=== PATIENT | female | born 1950 | race Caucasian/White ===

== ENCOUNTER 2016-10-31 13:41 | Emergency (ER) | payer MEDICARE, BC, OTHER ==
[~2016-10-31] VITALS: Ht 154.9 cm; Wt 101.9 kg
[2016-10-31] MEDS ORDERED: PARO40TA2 (13:57)
[2016-10-31] MEDS ORDERED: ALOG12.5 (13:57)
[2016-10-31] MEDS ORDERED: SPIR100T (13:57)
[2016-10-31] MEDS ORDERED: JARD1TAB (13:57)
[2016-10-31] MEDS ORDERED: ARIC10TA (13:57)
[2016-10-31] MEDS ORDERED: ATOR40TA (13:57)
[2016-10-31] MEDS ORDERED: PROA1AER (13:57)
[2016-10-31] MEDS ORDERED: ASPI81TA85 PO (13:57)
[2016-10-31 14:55] LABS: BASO # 0.1 K/mm3 (0.0-0.2); BASO % 1.2 % (0.0-1.0); EOS # 0.2 K/mm3 (0.0-0.50); EOS % 4.2 % (0.0-3.0); LARGE UNSTAINED CELL # 0.2 K/mm3 (0.0-0.4); LARGE UNSTAINED CELL % 3.2 % (0.0-4.0); LYMPH # 1.1 K/mm3 (1.5-4.5); LYMPH % 16.5 % (24.0-44.0); MEAN CORPUSCULAR HEMOGLOBIN 25.7 pg (27.0-33.0); MEAN CORPUSCULAR HGB CONC 30.4 g/dl (32.0-36.5); MEAN CORPUSCULAR VOLUME 84.5 fl (80.0-96.0); MONO # 0.3 K/mm3 (0.0-0.8); MONO % 5.2 % (0.0-5.0); NEUTROPHILS # 3.8 K/mm3 (1.8-7.7); NEUTROPHILS % 69.6 % (36.0-66.0); PLATELET COUNT, AUTOMATED 242 k/mm3 (150-450); RED CELL DISTRIBUTION WIDTH 17.6 % (11.5-14.5); WHITE BLOOD COUNT 5.4 K/mm3 (4.0-10.0)
[2016-10-31 15:21] LABS: CREATININE FOR GFR 1.19 MG/DL (0.55-1.02); GLOMERULAR FILTRATION RATE 48.3 (>45)
[2016-10-31 15:30] LABS: ALBUMIN/GLOBULIN RATIO 0.63 (1.00-1.93); BILIRUBIN,DIRECT 0.1 MG/DL (0.0-0.2); BILIRUBIN,TOTAL 0.3 MG/DL (0.2-1.0); TOTAL PROTEIN 7.8 GM/DL (6.4-8.2)
[2016-10-31 15:31] LABS: POTASSIUM SERUM 5.5 MEQ/L (3.5-5.1)
--- NOTE | 2016-10-31 15:41 | REP ---
CHEST, TWO VIEWS: Two views of the chest are performed and compared to a prior study of 08/04/2014. Heart does not appear to be significantly enlarged. Scattered interstitial fibrosis appears stable with no definite acute infiltrate. Mediastinal silhouette is unchanged. There are mild degenerative changes of the spine. IMPRESSION: Stable chronic findings without evidence of acute infiltrate. Signed by Ethan Bermudez MD 10/31/2016 05:26 P
--- NOTE | 2016-10-31 16:43 | REP ---
Bilateral lower extremity Duplex Doppler venous ultrasound: Real time compression and duplex Doppler interrogation of the bilateral lower extremity deep venous system is performed. Bilaterally, the common femoral, superficial femoral and popliteal veins are fully compressible with transducer pressure and demonstrate normal spontaneous and phasic flow, without evidence of deep venous thrombosis. Impression: No evidence of deep venous thrombosis of the bilateral lower extremity femoral popliteal venous system. Signed by Ethan Bermudez MD 10/31/2016 04:33 P
[2016-10-31] MEDS ORDERED: T E MIS XX (18:44)
[2016-10-31 18:47] LABS: CALCIUM LEVEL 8.5 MG/DL (8.8-10.2); CREATININE FOR GFR 1.25 MG/DL (0.55-1.02); GLOMERULAR FILTRATION RATE 45.6 (>45); POTASSIUM SERUM 4.9 MEQ/L (3.5-5.1)
[2016-10-31 18:51] LABS: PERCENT SATURATION 6.4 % (13.2-37.4)
[2016-10-31 18:57] LABS: FOLATE 19.8 NG/ML (>5.4)
[2016-10-31] MEDS ORDERED: LASI20TA PO (19:06)
[2016-10-31 19:18] VITALS: BP 134/63
--- NOTE | 2016-11-01 19:31 | ECGEPIP ---
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
== END 2016-10-31 19:31 | disposition home or self-care (01) ==
LOC: M ED 14:56
DX: R60.0 Localized edema (principal); E11.65 Type 2 diabetes mellitus with hyperglycemia; R06.02 Shortness of breath; I10 Essential (primary) hypertension; D49.7 Neoplasm of unspecified behavior of endocrine glands and other parts of nervous system; G30.9 Alzheimer's disease, unspecified; Z79.899 Other long term (current) drug therapy; Z79.82 Long term (current) use of aspirin

== ENCOUNTER 2016-11-20 11:23 | Emergency (ER) | payer MEDICARE, BC, OTHER ==
[~2016-11-20] VITALS: Ht 165.1 cm; Wt 90.0 kg
[~2016-11-20 11:23] MED LIST: ALOG12.5; ARIC1TAB2; ASPI81TA85 PO; ATOR40TA75; JARD1TAB; LASI20TA PO; PARO40TA2; PROAAER10; SPIR100T; T E MIS XX
[2016-11-20] MEDS ORDERED: HYDR-3713 PO (12:18)
[2016-11-20] MEDS ORDERED: BUPR50TA PO (12:18)
[2016-11-20 14:07] LABS: BASO # 0.1 K/mm3 (0.0-0.2); BASO % 1.3 % (0.0-1.0); EOS # 0.2 K/mm3 (0.0-0.50); EOS % 3.5 % (0.0-3.0); LARGE UNSTAINED CELL # 0.3 K/mm3 (0.0-0.4); LYMPH % 15.3 % (24.0-44.0); MEAN CORPUSCULAR HEMOGLOBIN 25.7 pg (27.0-33.0); MEAN CORPUSCULAR HGB CONC 30.9 g/dl (32.0-36.5); MEAN CORPUSCULAR VOLUME 83.3 fl (80.0-96.0); MONO # 0.4 K/mm3 (0.0-0.8); MONO % 5.4 % (0.0-5.0); NEUTROPHILS # 4.6 K/mm3 (1.8-7.7); NEUTROPHILS % 70.5 % (36.0-66.0); PLATELET COUNT, AUTOMATED 246 k/mm3 (150-450); RED CELL DISTRIBUTION WIDTH 16.2 % (11.5-14.5); WHITE BLOOD COUNT 6.5 K/mm3 (4.0-10.0)
[2016-11-20 14:19] LABS: INR 1.19
[2016-11-20 14:28] LABS: ALBUMIN 3.5 GM/DL (3.2-5.2); ALBUMIN/GLOBULIN RATIO 0.95 (1.00-1.93); ALKALINE PHOSPHATASE 230 U/L (45-117); ALT/SGPT 16 U/L (12-78); ANION GAP 8 MEQ/L (8-16); AST/SGOT 40 U/L (15-37); BILIRUBIN,DIRECT 0.1 MG/DL (0.0-0.2); BILIRUBIN,TOTAL 0.4 MG/DL (0.2-1.0); BLOOD UREA NITROGEN 51 MG/DL (7-18); CALCIUM LEVEL 8.5 MG/DL (8.8-10.2); CARBON DIOXIDE LEVEL 25 MEQ/L (21-32); CHLORIDE LEVEL 95 MEQ/L (98-107); CREATININE FOR GFR 1.51 MG/DL (0.55-1.02); GLOMERULAR FILTRATION RATE 36.7 (>45); GLUCOSE, FASTING 113 MG/DL (80-110); POTASSIUM SERUM 4.9 MEQ/L (3.5-5.1); SODIUM LEVEL 128 MEQ/L (136-145); TOTAL PROTEIN 7.2 GM/DL (6.4-8.2)
--- NOTE | 2016-11-20 15:37 | REP ---
Clinical: Abdominal pain. Elevated lipase levels. Findings: Lung bases are clear. Visualized heart and pericardium normal. Liver, spleen, pancreas, bilateral adrenal glands and kidneys are normal for noncontrast evaluation. No obvious peripancreatic stranding is appreciated to suggest acute pancreatitis by CT. The patient is status post cholecystectomy and small choledocholiths measuring up to 3 mm cannot be excluded (images 38 - 39, 41 - 42). Mesenteric stranding in the right lower abdomen adjacent to the ascending colon suggests acute colitis and should be correlated clinically. The remainder of the small and large bowel is unremarkable. Pelvis demonstrates normal bladder and mildly prominent uterus. No ascites. No free air. No adenopathy. Abdominal aorta without aneurysm. Musculoskeletal structures are intact. Impression: 1. Pericolonic and right lower abdominal stranding suggests colitis involving the ascending colon. Correlation recommended. 2. No significant peripancreatic changes to suggest acute pancreatitis by CT. 3. Prior cholecystectomy with suspected choledocholithiasis. Signed by Eh Delarosa MD 11/20/2016 03:29 P
[2016-11-20] MEDS ORDERED: NS 500 ML IV ONE (15:45)
[2016-11-20 17:06] VITALS: BP 141/63
--- NOTE | 2016-11-21 08:34 | ED PDOC ---
Post-Departure Follow-Up dr henriquez and rolf richardson faxed formal report of ct abd/p for fu Isra Izquierdo MD Nov 21, 2016 08:34
--- NOTE | 2016-11-21 20:47 | ECGEPIP ---
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
== END 2016-11-20 17:24 | disposition home or self-care (01) ==
LOC: M ED 11:23
DX: D64.9 Anemia, unspecified (principal); R53.1 Weakness; R93.5 Abnormal findings on diagnostic imaging of other abdominal regions, including retroperitoneum; G89.29 Other chronic pain; E11.9 Type 2 diabetes mellitus without complications; I51.9 Heart disease, unspecified; F99 Mental disorder, not otherwise specified; Z87.891 Personal history of nicotine dependence; Z79.899 Other long term (current) drug therapy; Z91.81 History of falling

== ENCOUNTER 2016-12-10 13:43 | Inpatient (IN) | payer MEDICARE, BC, OTHER ==
[~2016-12-10] VITALS: Ht 152.4 cm; Wt 90.8 kg
[2016-12-10] MEDS: LEVEMIR (INSULIN DETEMIR) 1 UNITS/0.01ML SC SCH (09:00)
[2016-12-10] MEDS: SPIRONOLACTONE 50 MG TAB PO SCH (09:00)
[2016-12-10] MEDS: PARoxetine 20 MG TAB PO SCH (09:00)
[2016-12-10] MEDS: ASPIRIN 81 MG ENTERIC TAB PO SCH (09:00)
[2016-12-10] MEDS: LISINOPRIL 40 MG TAB PO SCH (09:00)
[~2016-12-10 13:43] MED LIST changes: +BUPR50TA PO; +HYDR-3713 PO
[2016-12-10] MEDS ORDERED: ASPI1TAB PO (14:04)
[2016-12-10] MEDS ORDERED: GLIP10TA6 PO ×2 (14:04→16:44)
[2016-12-10] MEDS ORDERED: METH50TA2 (14:04)
[2016-12-10] MEDS ORDERED: FURO20TA2 (14:04)
[2016-12-10] MEDS ORDERED: PRIM250T8 (14:04)
[2016-12-10] MEDS ORDERED: ROPI2TAB (14:04)
[2016-12-10] MEDS ORDERED: LANTINJ4 (14:04)
[2016-12-10] MEDS ORDERED: LISI40TAB (14:04)
[2016-12-10] MEDS ORDERED: PRAM0.5T4 (14:04)
[2016-12-10 15:00] LABS: BASO % 0.8 % (0.0-1.0); EOS # 0.5 K/mm3 (0.0-0.50); EOS % 8.3 % (0.0-3.0); LARGE UNSTAINED CELL # 0.2 K/mm3 (0.0-0.4); LARGE UNSTAINED CELL % 2.9 % (0.0-4.0); LYMPH # 0.8 K/mm3 (1.5-4.5); LYMPH % 10.3 % (24.0-44.0); MEAN CORPUSCULAR HEMOGLOBIN 26.5 pg (27.0-33.0); MEAN CORPUSCULAR HGB CONC 31.5 g/dl (32.0-36.5); MEAN CORPUSCULAR VOLUME 84.3 fl (80.0-96.0); MONO # 0.4 K/mm3 (0.0-0.8); MONO % 6.5 % (0.0-5.0); NEUTROPHILS # 4.2 K/mm3 (1.8-7.7); NEUTROPHILS % 71.2 % (36.0-66.0); PLATELET COUNT, AUTOMATED 297 k/mm3 (150-450); RED CELL DISTRIBUTION WIDTH 16.8 % (11.5-14.5); WHITE BLOOD COUNT 5.9 K/mm3 (4.0-10.0)
[2016-12-10 15:38] LABS: ALBUMIN 3.1 GM/DL (3.2-5.2); ALBUMIN/GLOBULIN RATIO 0.79 (1.00-1.93); BILIRUBIN,DIRECT 0.4 MG/DL (0.0-0.2); BILIRUBIN,TOTAL 0.6 MG/DL (0.2-1.0); CALCIUM LEVEL 8.3 MG/DL (8.8-10.2); CREATININE FOR GFR 1.34 MG/DL (0.55-1.02); GLOMERULAR FILTRATION RATE 42.1 (>45); POTASSIUM SERUM 4.9 MEQ/L (3.5-5.1)
[2016-12-10] MEDS ORDERED: BUPR50TA PO (16:44)
[2016-12-10] MEDS ORDERED: ASPI1TAB15 PO (16:44)
[2016-12-10] MEDS ORDERED: LISI40TAB PO (16:44)
[2016-12-10] MEDS ORDERED: INSULANT SC (16:44)
[2016-12-10] MEDS ORDERED: ROPI2TAB PO (16:44)
[2016-12-10] MEDS ORDERED: PARO40TA2 PO (16:44)
[2016-12-10] MEDS ORDERED: MIRA0.5T PO (16:44)
[2016-12-10] MEDS ORDERED: SPIR100T PO (16:44)
[2016-12-10] MEDS ORDERED: JARD1TAB PO (16:44)
[2016-12-10] MEDS ORDERED: ATOR40TA75 PO (16:44)
[2016-12-10] MEDS ORDERED: FURO20TA2 PO (16:44)
[2016-12-10] MEDS ORDERED: METH50TA2 PO (16:44)
[2016-12-10] MEDS ORDERED: PRIM250T8 PO ×2 (16:44)
[2016-12-10] MEDS ORDERED: DONETAB6 PO (16:44)
[2016-12-10] MEDS ORDERED: ALOG12.5 PO (16:44)
[2016-12-10] MEDS ORDERED: GLUCAGON FOR INJ 1 MG VIAL (J1610) SC PRN (18:45)
[2016-12-10] MEDS ORDERED: DEXTROSE 50% 50 ML SYRINGE IV PRN (18:45)
[2016-12-10] MEDS ORDERED: GLUCOSE 4 GM CHEW TABLET PO PRN (18:45)
--- NOTE | 2016-12-10 19:12 | HPEPDOC ---
Medical History and Physical Date of Admission Dec 10, 2016 at 18:26 History and Physical PRIMARY CARE PROVIDER: Maria Teresa Joaquin ATTENDING: Manjit Bailey MD CHIEF COMPLAINT: Generalized weakness HISTORY OF PRESENT ILLNESS: This is a 66-year-old female past history of diabetes, hypertension, hypothyroidism, chronic hyponatremia, history of pituitary tumor status post resection, central tremor, CK D stage III baseline creatinine 1.2-1.3, uterine prolapse, rheumatoid arthritis who presents complaining of generalized weakness. The patient has been progressively getting weak over the past few months and walks with walker at baseline. Apparently patient's had from metastatic cancer and since then patient's has been grieving and has been having progressive decline in her conditioning. Patient was also noted to have fallen a number of times since July. No head trauma. No syncope. No loss of consciousness. Family has been attempting to take care of her however patient's status has continued to decline. PAST MEDICAL HISTORY: As per HPI PAST SURGICAL HISTORY: Pituitary tumor resection, ? Partial Hysterectomy, carpal tunnel surgery, cholecystectomy SOCIAL HISTORY: History of tobacco abuse however quit many years ago. No alcohol or illicit drug use. Lives with family. Recent of her . FAMILY HISTORY: Mother of MS 863, father of lung cancer age 57, brother lung cancer ALLERGIES: Please see below. REVIEW OF SYSTEMS: HEENT: Denies sore throat/headache CARDIOVASCULAR: Denies chest pain/palpitations RESPIRATORY: Denies shortness of breath/cough GASTROINTESTINAL: denies nausea/vomiting GENITOURINARY: Denies dysuria/urinary urgency. MUSCULOSKELETAL: Denies myalgias/arthralgias NEUROLOGICAL: Denies any focal weakness HOME MEDICATIONS: Please see below. PHYSICAL EXAMINATION: Vitals: (see below) General: No acute distress, laying comfortably in bed. Pale HEENT: Moist mucous membranes. Neck: No JVD or lymphadenopathy Cardiac: RRR, No murmurs Pulm: Clear to auscultation b/l. No wheezing, rhonchi Abd: NT/ND + BS. Obese. Ext: 1+ pitting edema BLE. No cyanosis. Full range of motion left lower extremity, with no pain to internal/external rotation. Distal pulses intact. Left upper extremity with abrasion at the forearm region. Distal pulses intact. No bleeding noted. Strength 5 out of 5 bilateral upper and lower extremity. LABORATORY DATA: See below. IMAGING: CT head pending. X-ray hips/knee pending MICROBIOLOGY: Please see below. ASSESSMENT/PLAN: 1. Symptomatic anemia- patient has had progressive decline in her hemoglobin. Family states that the patient occasionally has spotting from her vaginal region and was supposed to have a hysterectomy prior to her having metastatic cancer. The patient was also told that she will need a colonoscopy however had refused in the past. No acute bleeding at this time. We will transfuse 2 units PRBC. Pelvic ultrasound given vaginal spotting/bleeding. Will need outpatient colonoscopy and gynecology follow-up. 2. Hypothyroidism- continue home meds 3. Chronic hyponatremia- patient does have lower extremity edema, and Lasix will be increased. 4. Lower extremity edema- we'll rule out DVT with ultrasound. Lasix dose increased. Continue spironolactone 5. CKD stage III- creatinine1.2-1.3. Continue to monitor. Avoid nephrotoxins. 6. History of rheumatoid arthritis- states she hasn't had any treatment for the past year and half. Will need outpatient rheumatology follow-up. 7. Essential tremor- continue home meds 8. History of pituitary tumor status post resection 9. Diabetes mellitus- hold by mouth meds. Continue Levemir. 10. Left hip pain- will be imaged with x-ray Physical therapy consulted DVT prophylaxis- heparin subcutaneous Prognosis guarded. Patient was followed by Dr. Mya Gibbons starting 12/11/16 at 7 AM. Vital Signs Vital Signs Date Time Temp Pulse Resp B/P (MAP) Pulse Ox O2 Delivery O2 Flow Rate FiO2 12/10/16 14:31 12/10/16 14:17 98.4 66 16 97 Room Air Laboratory Data Labs 24H Laboratory Tests 2 12/10/16 14:40: White Blood Count 5.9, Red Blood Count 2.95L, Hemoglobin 7.8L, Hematocrit 24.8L , Mean Corpuscular Volume 84.3, Mean Corpuscular Hemoglobin 26.5L, Mean Corpuscular Hemoglobin Concent 31.5L, Red Cell Distribution Width 16.8H, Platelet Count 297, Neutrophils (%) (Auto) 71.2H, Lymphocytes (%) (Auto) 10.3L, Monocytes (%) (Auto) 6.5H, Eosinophils (%) (Auto) 8.3H, Basophils (%) (Auto) 0.8 , Neutrophils # (Auto) 4.2, Lymphocytes # (Auto) 0.8L, Monocytes # (Auto) 0.4, Eosinophils # (Auto) 0.5, Basophils # (Auto) 0.0, Large Unclassified Cells % 2.9 , Large Unclassified Cells # 0.2, Anion Gap 5L, Glomerular Filtration Rate 42.1L , Calcium Level 8.3L, Aspartate Amino Transf (AST/SGOT) 54H, Alanine Aminotransferase (ALT/SGPT) 23, Alkaline Phosphatase 267H, Total Bilirubin 0.6, Direct Bilirubin 0.4H, Total Protein 7.0, Albumin 3.1L, Albumin/Globulin Ratio 0.79L, Lipase 934H, Thyroid Stimulating Hormone (TSH) 0.439 CBC/BMP Laboratory Tests 12/10/16 14:40 Red Blood Count 2.95 L, Mean Corpuscular Volume 84.3, Mean Corpuscular Hemoglobin 26.5 L, Mean Corpuscular Hemoglobin Concent 31.5 L, Red Cell Distribution Width 16.8 H, Neutrophils (%) (Auto) 71.2 H, Lymphocytes (%) (Auto ) 10.3 L, Monocytes (%) (Auto) 6.5 H, Eosinophils (%) (Auto) 8.3 H, Basophils (% ) (Auto) 0.8, Neutrophils # (Auto) 4.2, Lymphocytes # (Auto) 0.8 L, Monocytes # (Auto) 0.4, Eosinophils # (Auto) 0.5, Basophils # (Auto) 0.0 Home Medications Scheduled Alogliptin Benzoate (Alogliptin) 12.5 Mg Tab, 25 MG PO DAILY Aspirin (Aspirin) 81 Mg Tab, 81 MG PO DAILY Atorvastatin Calcium (Atorvastatin Calcium) 40 Mg Tab, 40 MG PO DAILY Bupropion HCl (Bupropion HCl) 50 Mg Halftab, 100 MG PO TID Donepezil Hcl (Donepezil HCl) 10 Mg Tab, 10 MG PO DAILY Empagliflozin (Jardiance) 10 Mg Tab, 10 MG PO DAILY Furosemide (Furosemide) 20 Mg Tab, 20 MG PO BID Glipizide (Glipizide) 10 Mg Tab, 20 MG PO BID Insulin Glargine (Lantus) 1 Units/0.01 Ml Susp, 69 UNITS SC DAILY Lisinopril (Lisinopril) 40 Mg Tab, 40 MG PO DAILY Methazolamide (Methazolamide) 50 Mg Tab, 50 MG PO BID Paroxetine (Paroxetine HCl) 40 Mg Tab, 40 MG PO DAILY Pramipexole Dihydrochloride (Mirapex) 0.5 Mg Tab, 0.5 MG PO BID TAKES SUPPER AND BEDTIME Primidone (Primidone) 250 Mg Tab, 250 MG PO QAM Primidone (Primidone) 250 Mg Tab, 125 MG PO QPM Ropinirole Hydrochloride (Ropinirole HCl) 2 Mg Tab, 2 MG PO TID Spironolactone (Spironolactone) 100 Mg Tab, 100 MG PO DAILY Allergies Coded Allergies: No Known Allergies (Unverified , 11/20/16) MANJIT BAILEY MD Dec 10, 2016 19:12
--- NOTE | 2016-12-10 19:43 | REP ---
AP pelvis and bilateral hips: 12/10/2016. AP and frog-leg views of each hip and an AP pelvis view were provided. Comparison: CT abdomen and pelvis without contrast 11/20/2016. The AP pelvis shows pelvic ring intact. Pubic rami, symphysis pubis, acetabulum, iliac wings unremarkable. SI joints symmetric and grossly intact. Lumbar spine, lower three levels with some minor hypertrophic facet change. AP and frog-leg views of each hip were performed. Right hip: Hip joint space is preserved. There is no fracture, avulsion, subluxation or focal lesion of the hip or proximal femoral shaft. Acetabulum intact. Left hip: Hip joint space is preserved. There is no fracture, avulsion, subluxation or focal lesion of the hip or proximal femoral shaft. Acetabulum intact. Impression: 1. Negative AP pelvis and bilateral hips for fracture or other acute finding. Signed by El Salguero MD 12/10/2016 08:27 P
--- NOTE | 2016-12-10 19:45 | REP ---
Left knee, complete: 12/10/2016. Clinical history: Trauma, patient fell. Six views are performed with a repeat oblique view. There is some chondrocalcinosis in the medial and lateral compartments. I do not see joint space narrowing in the medial or lateral compartment. There is no loose body or osteochondral defect. Spurs and tibial spines, medial and lateral joint line as well as the patellofemoral margins, although those are small. I do not see suprapatellar effusion. There is no visible or displaced fracture, avulsion. Proximal tibial - fibular articulation normal. Vascular calcifications of the popliteal artery. Impression: 1. Chondrocalcinosis consistent with CPPD arthritis (pseudogout) with no fracture, joint effusion, joint space narrowing, loose body or definite avulsion. Signed by El Salguero MD 12/10/2016 08:27 P
--- NOTE | 2016-12-10 19:50 | REPUSA ---
HISTORY: PITUITARY TUMOR; FREQUENT FALLS. Comparison is made to previous head CT dated 10/25/14. TECHNIQUE: Axial CT imaging of brain without contrast. DLP= 776.6 mGy-cm. FINDINGS: There has been no significant change since previous examination. Ventricles and sulci are slightly consistent with some degree of generalized cerebral atrophy. There is suggestion of promine nce in the pituitary fossa which corresponds to history of pituitary mass. This is unchanged in appe arance from previous CT examination. Clinical correlation and follow-up imaging with MRI is suggeste d if indicated. There is no other evidence of intracranial mass, hemorrhage, infarct, or abnormal ex tra-axial fluid collection seen. No skull fracture or destructive bony lesion is seen in the calvari um. IMPRESSION: 1. No significant change from previous examination as discussed above with suspected pro minence in the pituitary fossa, corresponding to history of pituitary tumor, incompletely evaluated o n this noncontrast CT examination. 2. No evidence of skull fracture, intracranial hemorrhage, or abnormal extra-axial fluid collection or infarct seen.
--- NOTE | 2016-12-10 20:16 | REP ---
BILATERAL LOWER EXTREMITY DOPPLER VENOUS ULTRASOUND: Comparison: 10/31/2016. Clinical history: Suspected DVT. Technique: The deep venous system of the bilateral lower extremities is evaluated with sigala scale imaging, compression ultrasound, color imaging and duplex Doppler interrogation. Examination from the groin through the popliteal fossa into the proximal calf. Findings: There is full compressibility from the common femoral vein in the inguinal region through the popliteal vein on both sides. Color imaging confirms patency throughout the course of the deep venous system. There is respiratory variation and augmented flow at all levels. Impression: 1. No Doppler venous ultrasound evidence of DVT in the bilateral lower extremities. Signed by El Salguero MD 12/10/2016 08:28 P
[2016-12-10 20:25] VITALS: BP 143/65
[2016-12-10] MEDS: HumaLOG INSULIN (NovoLOG) PER UNIT SC SCH (20:54)
[2016-12-10] MEDS: PRAMIPEXOLE 0.25 MG TAB PO SCH (22:12)
[2016-12-10] MEDS: rOPINIRole 1MG TAB PO SCH (22:12)
[2016-12-10] MEDS: PRIMIDONE 250 MG TAB PO SCH (22:12)
[2016-12-10] MEDS: HEPARIN SOD (PORCINE) 5000 UNITS/ML VIAL SC SCH (22:12)
[2016-12-10] MEDS: buPROPion 100 MG TAB PO SCH (22:13)
[2016-12-10] MEDS: NYSTATIN 100,000 UNITS/GM TOPICAL PWD 15 GM TOP SCH (22:13)
[2016-12-10] MEDS: FUROSEMIDE 40 MG TAB PO SCH (22:15)
[2016-12-11 01:11] LABS: MEAN CORPUSCULAR HEMOGLOBIN 26.3 pg (27.0-33.0); MEAN CORPUSCULAR HGB CONC 31.5 g/dl (32.0-36.5); MEAN CORPUSCULAR VOLUME 83.5 fl (80.0-96.0); RED CELL DISTRIBUTION WIDTH 16.2 % (11.5-14.5)
[2016-12-11 04:00] VITALS: BP 140/63
[2016-12-11] MEDS: HEPARIN SOD (PORCINE) 5000 UNITS/ML VIAL SC SCH ×3 (05:36→21:25)
--- NOTE | 2016-12-11 07:50 | REP ---
TRANSABDOMINAL PELVIC ULTRASOUND: 12/10/2016. Clinical history: Vaginal bleeding, post menopausal. Comparison: CT abdomen and pelvis without contrast 11/20/2016. Findings: Bladder measured 10.8 x 6.1 x 7.3 cm. Uterus is anteverted, it is not enlarged. It has smooth contours. Endometrial echogenic stripe is thin at 4.8 mm. No fluid in the endometrial cavity. No free fluid in the cul-de-sac. No visible adnexal mass or ovary. Impression: 1. Uterus anteverted, not enlarged with normal appearance and thickness of the endometrial stripe. Given history of vaginal bleeding gynecology consultation recommended for visualization of cervix and further workup. 2. Ovaries not visible, no mass in the adnexal regions. No pelvic free fluid. Quite limited exam due to body habitus considerations. The patient declined EV probe at this time. Signed by El Salguero MD 12/10/2016 08:28 P
[2016-12-11] MEDS: NYSTATIN 100,000 UNITS/GM TOPICAL PWD 15 GM TOP SCH ×2 (09:14→21:27)
[2016-12-11] MEDS: ASPIRIN 81 MG ENTERIC TAB PO SCH (09:15)
[2016-12-11] MEDS: rOPINIRole 1MG TAB PO SCH ×3 (09:15→21:26)
[2016-12-11] MEDS: PARoxetine 20 MG TAB PO SCH (09:15)
[2016-12-11] MEDS: PRAMIPEXOLE 0.25 MG TAB PO SCH ×2 (09:16→21:26)
[2016-12-11] MEDS: PRIMIDONE 250 MG TAB PO SCH ×2 (09:18→21:26)
[2016-12-11] MEDS: buPROPion 100 MG TAB PO SCH ×3 (09:18→21:26)
[2016-12-11] MEDS: ATORVASTATIN 20 MG TAB PO SCH (09:18)
[2016-12-11] MEDS: LISINOPRIL 40 MG TAB PO SCH (09:20)
[2016-12-11] MEDS: SPIRONOLACTONE 50 MG TAB PO SCH (09:35)
[2016-12-11] MEDS: FUROSEMIDE 40 MG TAB PO SCH ×2 (09:35→17:55)
[2016-12-11 10:00] VITALS: BP 146/65
[2016-12-11] MEDS: HumaLOG INSULIN (NovoLOG) PER UNIT SC SCH ×4 (10:41→20:34)
[2016-12-11] MEDS: LEVEMIR (INSULIN DETEMIR) 1 UNITS/0.01ML SC SCH (10:41)
--- NOTE | 2016-12-11 10:59 | IPNPDOC ---
Subjective Date Seen The patient was seen on 12/11/16. Subjective Chief Complaint/HPI The patient is a 66-year-old female admitted with a reason for visit of Symptomatic Anemia. Events since last encounter does not offer any complaints. says her son brought her to the hospital as she was falling repeatedly says using a walker after her . knows she is in the hospital, knows the name of the hospit and where it is located. Objective Physical Examination General Exam: Positive: Alert, Cooperative, No Acute Distress Eye Exam: Positive: PERRLA, Conjunctiva & lids normal, EOMI, Negative: Sclera icteric ENT Exam: Positive: Atraumatic, Mucous membr. moist/pink, Pharynx Normal Neck Exam: Positive: Supple, Negative: JVD, thyromegaly Chest Exam: Positive: Clear to auscultation, Diminished Heart Exam: Positive: Rate Normal, Regular Rhythm, Normal S1, Normal S2, Negative: Murmurs, Rubs Abdomen Exam: Positive: Normal bowel sounds, Soft, Negative: Tenderness, Hepatospenomegaly Extremity Exam: Positive: Edema Assessment /Plan Problems (1) Symptomatic anemia Status: Acute Problem Text: recieved 1.5 units of prbc will monitor hh (2) Hyponatremia Status: Chronic Problem Text: some acute worsening of hyponatremia has fluid overload will continue with diuretics monitor. (3) Gait instability Status: Chronic Problem Text: with h/o recurrent falls will get PT evaluation. (4) Pituitary abnormality Status: Chronic Problem Text: history of pitutary tumor s/p resection in the remote past. (5) Diabetes Status: Chronic Problem Text: will decrease dose of levemir and continue lispro insulin unsure about the patient's oral intake. (6) Weakness generalized Status: Chronic Response to Treatment: Worse (7) CKD (chronic kidney disease), stage III Status: Chronic Response to Treatment: Stable (8) Hypothyroid Status: Chronic Response to Treatment: Stable (9) Hypertension Status: Chronic Response to Treatment: Stable (10) Rheumatoid arthritis Status: Chronic (11) Essential tremor Status: Chronic (12) Depression Status: Chronic (13) Restless leg syndrome Status: Chronic (14) Hyperlipidemia Status: Chronic Plan/VTE VTE Prophylaxis Ordered?: Yes VS, I&O, 24H, Fishbone Vital Signs/I&O Vital Signs Date Time Temp Pulse Resp B/P (MAP) Pulse Ox O2 Delivery O2 Flow Rate FiO2 12/11/16 04:00 97.5 68 18 140/63 (88) 96 Room Air I&O- Last 24 Hours up to 6 AM 12/11/16 05:59 Intake Total 920 ml Output Total 800 ml Balance 120 ml Laboratory Data 24H LABS Laboratory Tests 2 12/10/16 14:40: White Blood Count 5.9, Red Blood Count 2.95L, Hemoglobin 7.8L, Hematocrit 24.8L , Mean Corpuscular Volume 84.3, Mean Corpuscular Hemoglobin 26.5L, Mean Corpuscular Hemoglobin Concent 31.5L, Red Cell Distribution Width 16.8H, Platelet Count 297, Neutrophils (%) (Auto) 71.2H, Lymphocytes (%) (Auto) 10.3L, Monocytes (%) (Auto) 6.5H, Eosinophils (%) (Auto) 8.3H, Basophils (%) (Auto) 0.8 , Neutrophils # (Auto) 4.2, Lymphocytes # (Auto) 0.8L, Monocytes # (Auto) 0.4, Eosinophils # (Auto) 0.5, Basophils # (Auto) 0.0, Large Unclassified Cells % 2.9 , Large Unclassified Cells # 0.2, Anion Gap 5L, Glomerular Filtration Rate 42.1L , Calcium Level 8.3L, Aspartate Amino Transf (AST/SGOT) 54H, Alanine Aminotransferase (ALT/SGPT) 23, Alkaline Phosphatase 267H, Total Bilirubin 0.6, Direct Bilirubin 0.4H, Total Protein 7.0, Albumin 3.1L, Albumin/Globulin Ratio 0.79L, Lipase 934H, Thyroid Stimulating Hormone (TSH) 0.439 12/10/16 19:56: Urine Appearance HAZY, Urine Color YELLOW, Urine pH 6.0, Urine Specific [place] 1.011, Urine Protein NEGATIVE, Urine Glucose (UA) 3+H, Urine Ketones NEGATIVE, Urine Urobilinogen 0.2, Urine Bilirubin NEGATIVE, Urine Leukocyte Esterase 2+H, Urine Blood NEGATIVE, Urine Nitrite NEGATIVE, Urine WBC (Auto) 33H, Urine RBC ( Auto) 4H, Urine Hyaline Casts (Auto) 0, Urine Bacteria (Auto) 1+H, Urine Squamous Epithelial Cells 2, Urine Sperm (Auto) 12/10/16 20:37: Bedside Glucose (Misc Panel) 182H 12/11/16 05:59: Bedside Glucose (Misc Panel) 113 CBC/BMP Laboratory Tests 12/10/16 14:40 Red Blood Count 2.95 L, Mean Corpuscular Volume 84.3, Mean Corpuscular Hemoglobin 26.5 L, Mean Corpuscular Hemoglobin Concent 31.5 L, Red Cell Distribution Width 16.8 H, Neutrophils (%) (Auto) 71.2 H, Lymphocytes (%) (Auto ) 10.3 L, Monocytes (%) (Auto) 6.5 H, Eosinophils (%) (Auto) 8.3 H, Basophils (% ) (Auto) 0.8, Neutrophils # (Auto) 4.2, Lymphocytes # (Auto) 0.8 L, Monocytes # (Auto) 0.4, Eosinophils # (Auto) 0.5, Basophils # (Auto) 0.0 12/11/16 00:48 Red Blood Count 3.65 L, Mean Corpuscular Volume 83.5, Mean Corpuscular Hemoglobin 26.3 L, Mean Corpuscular Hemoglobin Concent 31.5 L, Red Cell Distribution Width 16.2 H LIZ AGUILAR MD Dec 11, 2016 10:59
[2016-12-11 14:00] VITALS: BP 126/59
[2016-12-11 18:00] VITALS: BP 130/60
[2016-12-11 22:00] VITALS: BP 145/68
[2016-12-12 02:00] VITALS: BP 136/67
[2016-12-12] MEDS: HEPARIN SOD (PORCINE) 5000 UNITS/ML VIAL SC SCH ×4 (05:45→20:12)
[2016-12-12 06:00] VITALS: BP 126/53
[2016-12-12] MEDS: HumaLOG INSULIN (NovoLOG) PER UNIT SC SCH ×3 (07:30→16:54)
[2016-12-12 07:32] LABS: BASO # 0.1 K/mm3 (0.0-0.2); EOS # 0.2 K/mm3 (0.0-0.50); LARGE UNSTAINED CELL # 0.2 K/mm3 (0.0-0.4); LARGE UNSTAINED CELL % 2.7 % (0.0-4.0); LYMPH # 0.9 K/mm3 (1.5-4.5); LYMPH % 11.4 % (24.0-44.0); MEAN CORPUSCULAR HEMOGLOBIN 26.9 pg (27.0-33.0); MEAN CORPUSCULAR HGB CONC 32.3 g/dl (32.0-36.5); MEAN CORPUSCULAR VOLUME 83.2 fl (80.0-96.0); MONO # 0.4 K/mm3 (0.0-0.8); MONO % 6.8 % (0.0-5.0); NEUTROPHILS # 4.7 K/mm3 (1.8-7.7); NEUTROPHILS % 74.2 % (36.0-66.0); PLATELET COUNT, AUTOMATED 294 k/mm3 (150-450); RED CELL DISTRIBUTION WIDTH 16.6 % (11.5-14.5); WHITE BLOOD COUNT 6.4 K/mm3 (4.0-10.0)
[2016-12-12 08:01] LABS: CALCIUM LEVEL 8.8 MG/DL (8.8-10.2); CREATININE FOR GFR 1.26 MG/DL (0.55-1.02); GLOMERULAR FILTRATION RATE 45.2 (>45); POTASSIUM SERUM 4.2 MEQ/L (3.5-5.1)
[2016-12-12] MEDS: LEVEMIR (INSULIN DETEMIR) 1 UNITS/0.01ML SC SCH (09:00)
[2016-12-12] MEDS: PARoxetine 20 MG TAB PO SCH (09:23)
[2016-12-12] MEDS: PRAMIPEXOLE 0.25 MG TAB PO SCH ×2 (09:23→20:13)
[2016-12-12] MEDS: buPROPion 100 MG TAB PO SCH ×3 (09:23→20:13)
[2016-12-12] MEDS: ATORVASTATIN 20 MG TAB PO SCH (09:23)
[2016-12-12] MEDS: FUROSEMIDE 40 MG TAB PO SCH ×2 (09:24→16:53)
[2016-12-12] MEDS: SPIRONOLACTONE 50 MG TAB PO SCH (09:24)
[2016-12-12] MEDS: PRIMIDONE 250 MG TAB PO SCH ×2 (09:24→20:13)
[2016-12-12] MEDS: LISINOPRIL 40 MG TAB PO SCH (09:24)
[2016-12-12] MEDS: rOPINIRole 1MG TAB PO SCH ×3 (09:25→20:13)
[2016-12-12] MEDS: ASPIRIN 81 MG ENTERIC TAB PO SCH (09:25)
[2016-12-12] MEDS: NYSTATIN 100,000 UNITS/GM TOPICAL PWD 15 GM TOP SCH ×2 (09:26→20:12)
[2016-12-12 10:00] VITALS: BP 113/55
--- NOTE | 2016-12-12 10:54 | IPNPDOC ---
Subjective Date Seen The patient was seen on 12/12/16. Subjective Chief Complaint/HPI The patient is a 66-year-old female admitted with a reason for visit of Symptomatic Anemia. Events since last encounter Pateint did not offer any complaints this am , denied any pain , denied any nausea or vomiting or diarrhea, says just feels weak. no fever or chills Objective Physical Examination General Exam: Positive: Alert, Cooperative, No Acute Distress Eye Exam: Positive: PERRLA, Conjunctiva & lids normal, EOMI, Negative: Sclera icteric ENT Exam: Positive: Atraumatic, Mucous membr. moist/pink, Pharynx Normal Neck Exam: Positive: Supple, Negative: JVD, thyromegaly Chest Exam: Positive: Clear to auscultation, Diminished Heart Exam: Positive: Rate Normal, Regular Rhythm, Normal S1, Normal S2, Negative: Murmurs, Rubs Abdomen Exam: Positive: Normal bowel sounds, Soft, Negative: Tenderness, Hepatospenomegaly Extremity Exam: Positive: Edema Assessment /Plan Problems (1) Hypoglycemia Status: Acute Problem Text: Had asymptomatic hypoglycemia this am will hold levemir insulin and lispo HS insulin will continue with lispro ac as per sliding scale. (2) Symptomatic anemia Status: Resolved Problem Text: received 1.5 units of prbc will monitor hh No bleeding anemia of chronic disease. will check iron studies, vit b12 and folate levels. (3) Hyponatremia Status: Resolved Problem Text: some acute worsening of hyponatremia has fluid overload will continue with diuretics monitor. 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 (6) Diabetes Status: Chronic Problem Text: hypoglycemia will hold levemir today and continue only lispro before meals. (7) Weakness generalized Status: Chronic Response to Treatment: Worse (8) CKD (chronic kidney disease), stage III Status: Chronic Response to Treatment: Stable (9) Hypothyroid Status: Chronic Response to Treatment: Stable (10) Hypertension Status: Chronic Response to Treatment: Stable (11) Rheumatoid arthritis Status: Chronic (12) Essential tremor Status: Chronic (13) Depression Status: Chronic (14) Restless leg syndrome Status: Chronic (15) Hyperlipidemia Status: Chronic Plan/VTE VTE Prophylaxis Ordered?: Yes VS, I&O, 24H, [facility] Vital Signs/I&O Vital Signs Date Time Temp Pulse Resp B/P (MAP) Pulse Ox O2 Delivery O2 Flow Rate FiO2 12/12/16 06:00 97.6 69 19 126/53 (77) 95 Room Air I&O- Last 24 Hours up to 6 AM 12/12/16 06:00 Intake Total 1320 ml Output Total 0 ml Balance 1320 ml Laboratory Data 24H LABS Laboratory Tests 2 12/11/16 11:41: Bedside Glucose (Misc Panel) 226H 12/11/16 16:45: Bedside Glucose (Misc Panel) 107 12/11/16 20:02: Bedside Glucose (Misc Panel) 129H 12/12/16 07:08: White Blood Count 6.4, Red Blood Count 3.65L, Hemoglobin 9.8L, Hematocrit 30.4L , Mean Corpuscular Volume 83.2, Mean Corpuscular Hemoglobin 26.9L, Mean Corpuscular Hemoglobin Concent 32.3, Red Cell Distribution Width 16.6H, Platelet Count 294, Neutrophils (%) (Auto) 74.2H, Lymphocytes (%) (Auto) 11.4L, Monocytes (%) (Auto) 6.8H, Eosinophils (%) (Auto) 4.0H, Basophils (%) (Auto) 1.0 , Neutrophils # (Auto) 4.7, Lymphocytes # (Auto) 0.9L, Monocytes # (Auto) 0.4, Eosinophils # (Auto) 0.2, Basophils # (Auto) 0.1, Large Unclassified Cells % 2.7 , Large Unclassified Cells # 0.2, Anion Gap 11, Glomerular Filtration Rate 45.2 , Blood Urea Nitrogen 40H, Creatinine 1.26H, Sodium Level 135#L, Potassium Level 4.2, Chloride Level 100, Carbon Dioxide Level 24, Calcium Level 8.8 12/12/16 09:36: Bedside Glucose (Misc Panel) 82 CBC/BMP Laboratory Tests 12/12/16 07:08 Red Blood Count 3.65 L, Mean Corpuscular Volume 83.2, Mean Corpuscular Hemoglobin 26.9 L, Mean Corpuscular Hemoglobin Concent 32.3, Red Cell Distribution Width 16.6 H, Neutrophils (%) (Auto) 74.2 H, Lymphocytes (%) (Auto ) 11.4 L, Monocytes (%) (Auto) 6.8 H, Eosinophils (%) (Auto) 4.0 H, Basophils (% ) (Auto) 1.0, Neutrophils # (Auto) 4.7, Lymphocytes # (Auto) 0.9 L, Monocytes # (Auto) 0.4, Eosinophils # (Auto) 0.2, Basophils # (Auto) 0.1, Calcium Level 8.8 LIZ AGUILAR MD Dec 12, 2016 10:54
[2016-12-12 14:00] VITALS: BP 125/61
[2016-12-12 18:00] VITALS: BP 133/62
[2016-12-12 22:00] VITALS: BP 119/56
[2016-12-13 05:56] LABS: BASO # 0.1 K/mm3 (0.0-0.2); BASO % 1.1 % (0.0-1.0); EOS # 0.5 K/mm3 (0.0-0.50); EOS % 7.2 % (0.0-3.0); LARGE UNSTAINED CELL # 0.2 K/mm3 (0.0-0.4); LARGE UNSTAINED CELL % 2.9 % (0.0-4.0); LYMPH # 1.2 K/mm3 (1.5-4.5); MEAN CORPUSCULAR HGB CONC 31.6 g/dl (32.0-36.5); MEAN CORPUSCULAR VOLUME 82.3 fl (80.0-96.0); MONO # 0.4 K/mm3 (0.0-0.8); MONO % 6.2 % (0.0-5.0); NEUTROPHILS # 4.3 K/mm3 (1.8-7.7); NEUTROPHILS % 66.6 % (36.0-66.0); PLATELET COUNT, AUTOMATED 291 k/mm3 (150-450); RED CELL DISTRIBUTION WIDTH 16.6 % (11.5-14.5); WHITE BLOOD COUNT 6.5 K/mm3 (4.0-10.0)
[2016-12-13 06:19] LABS: ANION GAP 10 MEQ/L (8-16); BLOOD UREA NITROGEN 44 MG/DL (7-18); CALCIUM LEVEL 8.9 MG/DL (8.8-10.2); CARBON DIOXIDE LEVEL 23 MEQ/L (21-32); CHLORIDE LEVEL 97 MEQ/L (98-107); FERRITIN 64 NG/ML (8-252); GLOMERULAR FILTRATION RATE 43.6 (>45); GLUCOSE, FASTING 131 MG/DL (80-110); PERCENT SATURATION 14.4 % (13.2-37.4); POTASSIUM SERUM 4.3 MEQ/L (3.5-5.1); SODIUM LEVEL 130 MEQ/L (136-145); TOTAL IRON BINDING CAPACITY 389 UG/DL (250-450)
[2016-12-13] MEDS: HEPARIN SOD (PORCINE) 5000 UNITS/ML VIAL SC SCH ×3 (06:33→21:42)
[2016-12-13] MEDS: SPIRONOLACTONE 50 MG TAB PO SCH (08:06)
[2016-12-13] MEDS: rOPINIRole 1MG TAB PO SCH ×3 (08:06→20:03)
[2016-12-13] MEDS: NYSTATIN 100,000 UNITS/GM TOPICAL PWD 15 GM TOP SCH ×2 (08:06→20:04)
[2016-12-13] MEDS: PRIMIDONE 250 MG TAB PO SCH ×2 (08:07→20:03)
[2016-12-13] MEDS: LISINOPRIL 40 MG TAB PO SCH (08:07)
[2016-12-13] MEDS: ASPIRIN 81 MG ENTERIC TAB PO SCH (08:07)
[2016-12-13] MEDS: PRAMIPEXOLE 0.25 MG TAB PO SCH ×2 (08:07→20:03)
[2016-12-13] MEDS: buPROPion 100 MG TAB PO SCH ×3 (08:07→20:03)
[2016-12-13] MEDS: ATORVASTATIN 20 MG TAB PO SCH (08:07)
[2016-12-13] MEDS: PARoxetine 20 MG TAB PO SCH (08:07)
[2016-12-13] MEDS: SENOKOT S TAB PO SCH ×2 (08:07→20:04)
[2016-12-13] MEDS: FUROSEMIDE 40 MG TAB PO SCH ×2 (08:08→16:34)
[2016-12-13] MEDS: HumaLOG INSULIN (NovoLOG) PER UNIT SC SCH ×3 (08:09→18:13)
--- NOTE | 2016-12-13 08:18 | IPNPDOC ---
Subjective Date Seen The patient was seen on 12/13/16. Subjective Chief Complaint/HPI The patient is a 66-year-old female admitted with a reason for visit of Symptomatic Anemia. Events since last encounter no issues overnight , pateint does not offer any complaints. Objective Physical Examination General Exam: Positive: Alert, Cooperative, No Acute Distress Eye Exam: Positive: PERRLA, Conjunctiva & lids normal, EOMI, Negative: Sclera icteric ENT Exam: Positive: Atraumatic, Mucous membr. moist/pink, Pharynx Normal Neck Exam: Positive: Supple, Negative: JVD, thyromegaly Chest Exam: Positive: Clear to auscultation, Diminished Heart Exam: Positive: Rate Normal, Regular Rhythm, Normal S1, Normal S2, Negative: Murmurs, Rubs Abdomen Exam: Positive: Normal bowel sounds, Soft, Negative: Tenderness, Hepatospenomegaly Extremity Exam: Positive: Edema Assessment /Plan Problems (1) Hypoglycemia Status: Resolved Problem Text: Had asymptomatic hypoglycemia this am will hold levemir insulin and lispo HS insulin will continue with lispro ac as per sliding scale. (2) Symptomatic anemia Status: Resolved Problem Text: received 1.5 units of prbc will monitor hh No bleeding anemia of chronic disease. will check iron studies, vit b12 and folate levels. (3) Hyponatremia Status: Resolved Problem Text: some acute worsening of hyponatremia has fluid overload will continue with diuretics monitor. 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 (6) Diabetes Status: Chronic Problem Text: hypoglycemia will hold levemir today and continue only lispro before meals. (7) Weakness generalized Status: Chronic Response to Treatment: Worse (8) CKD (chronic kidney disease), stage III Status: Chronic Response to Treatment: Stable (9) Hypothyroid Status: Chronic Response to Treatment: Stable (10) Hypertension Status: Chronic Response to Treatment: Stable (11) Rheumatoid arthritis Status: Chronic (12) Essential tremor Status: Chronic (13) Depression Status: Chronic (14) Restless leg syndrome Status: Chronic (15) Hyperlipidemia Status: Chronic Plan/VTE VTE Prophylaxis Ordered?: Yes VS, I&O, 24H, Fishbone Vital Signs/I&O Vital Signs Date Time Temp Pulse Resp B/P (MAP) Pulse Ox O2 Delivery O2 Flow Rate FiO2 12/12/16 22:00 97.6 65 20 119/56 (77) 97 Room Air I&O- Last 24 Hours up to 6 AM 12/13/16 06:00 Intake Total 1180 ml Balance 1180 ml Laboratory Data 24H LABS Laboratory Tests 2 12/12/16 09:36: Bedside Glucose (Misc Panel) 82 12/12/16 11:24: Bedside Glucose (Misc Panel) 187H 12/12/16 16:28: Bedside Glucose (Misc Panel) 124H 12/12/16 20:56: Bedside Glucose (Misc Panel) 197H 12/13/16 05:39: White Blood Count 6.5, Red Blood Count 3.57L, Hemoglobin 9.3L, Hematocrit 29.4L , Mean Corpuscular Volume 82.3, Mean Corpuscular Hemoglobin 26.0L, Mean Corpuscular Hemoglobin Concent 31.6L, Red Cell Distribution Width 16.6H, Platelet Count 291, Neutrophils (%) (Auto) 66.6H, Lymphocytes (%) (Auto) 16.0L, Monocytes (%) (Auto) 6.2H, Eosinophils (%) (Auto) 7.2H, Basophils (%) (Auto) 1.1H, Neutrophils # (Auto) 4.3, Lymphocytes # (Auto) 1.2L, Monocytes # (Auto) 0.4, Eosinophils # (Auto) 0.5, Basophils # (Auto) 0.1, Large Unclassified Cells % 2.9, Large Unclassified Cells # 0.2, Anion Gap 10, Glomerular Filtration Rate 43.6L, Blood Urea Nitrogen 44H, Creatinine 1.30H, Sodium Level 130L, Potassium Level 4.3, Chloride Level 97L, Carbon Dioxide Level 23, Calcium Level 8.9, Iron Level 56, Total Iron Binding Capacity 389, Transferrin % Saturation 14.4, Ferritin 64 CBC/BMP Laboratory Tests 12/13/16 05:39 Red Blood Count 3.57 L, Mean Corpuscular Volume 82.3, Mean Corpuscular Hemoglobin 26.0 L, Mean Corpuscular Hemoglobin Concent 31.6 L, Red Cell Distribution Width 16.6 H, Neutrophils (%) (Auto) 66.6 H, Lymphocytes (%) (Auto ) 16.0 L, Monocytes (%) (Auto) 6.2 H, Eosinophils (%) (Auto) 7.2 H, Basophils (% ) (Auto) 1.1 H, Neutrophils # (Auto) 4.3, Lymphocytes # (Auto) 1.2 L, Monocytes # (Auto) 0.4, Eosinophils # (Auto) 0.5, Basophils # (Auto) 0.1, Calcium Level 8.9 LIZ AGUILAR MD Dec 13, 2016 08:18
[2016-12-13 09:14] VITALS: BP 134/63
[2016-12-13 09:16] VITALS: BP 134/63
[2016-12-13 12:22] VITALS: BP 126/62
[2016-12-13 13:00] VITALS: BP_SYST 128; BP_SYST 134; BP_DIAS 61; BP_DIAS 63
[2016-12-13 18:00] VITALS: BP 140/61
[2016-12-13 22:00] VITALS: BP 126/58
[2016-12-14] VITALS (7 sets, daily range): BP systolic 117–161; BP diastolic 58–70
[2016-12-14] MEDS: HEPARIN SOD (PORCINE) 5000 UNITS/ML VIAL SC SCH ×3 (05:02→21:08)
[2016-12-14 06:03] LABS: BASO # 0.1 K/mm3 (0.0-0.2); BASO % 1.3 % (0.0-1.0); EOS # 0.4 K/mm3 (0.0-0.50); EOS % 6.6 % (0.0-3.0); LARGE UNSTAINED CELL # 0.2 K/mm3 (0.0-0.4); LARGE UNSTAINED CELL % 3.4 % (0.0-4.0); LYMPH # 1.4 K/mm3 (1.5-4.5); LYMPH % 19.1 % (24.0-44.0); MEAN CORPUSCULAR HEMOGLOBIN 26.7 pg (27.0-33.0); MEAN CORPUSCULAR VOLUME 83.5 fl (80.0-96.0); MONO # 0.5 K/mm3 (0.0-0.8); MONO % 7.3 % (0.0-5.0); NEUTROPHILS # 3.9 K/mm3 (1.8-7.7); NEUTROPHILS % 62.3 % (36.0-66.0); PLATELET COUNT, AUTOMATED 288 k/mm3 (150-450); RED CELL DISTRIBUTION WIDTH 16.6 % (11.5-14.5); WHITE BLOOD COUNT 6.3 K/mm3 (4.0-10.0)
[2016-12-14 06:22] LABS: CALCIUM LEVEL 8.9 MG/DL (8.8-10.2); CREATININE FOR GFR 1.37 MG/DL (0.55-1.02); GLOMERULAR FILTRATION RATE 41.1 (>45); POTASSIUM SERUM 4.3 MEQ/L (3.5-5.1)
[2016-12-14] MEDS: HumaLOG INSULIN (NovoLOG) PER UNIT SC SCH ×3 (08:57→17:55)
[2016-12-14] MEDS: ATORVASTATIN 20 MG TAB PO SCH (08:58)
[2016-12-14] MEDS: SPIRONOLACTONE 50 MG TAB PO SCH (08:58)
[2016-12-14] MEDS: PARoxetine 20 MG TAB PO SCH (08:58)
[2016-12-14] MEDS: PRAMIPEXOLE 0.25 MG TAB PO SCH ×2 (08:58→21:06)
[2016-12-14] MEDS: rOPINIRole 1MG TAB PO SCH ×3 (08:58→21:07)
[2016-12-14] MEDS: buPROPion 100 MG TAB PO SCH ×3 (08:58→21:06)
[2016-12-14] MEDS: ASPIRIN 81 MG ENTERIC TAB PO SCH (08:58)
[2016-12-14] MEDS: SENOKOT S TAB PO SCH ×2 (08:58→21:06)
[2016-12-14] MEDS: LISINOPRIL 40 MG TAB PO SCH (08:59)
[2016-12-14] MEDS: FUROSEMIDE 40 MG TAB PO SCH ×2 (08:59→17:54)
[2016-12-14] MEDS: LEVEMIR (INSULIN DETEMIR) 1 UNITS/0.01ML SC SCH (09:00)
[2016-12-14] MEDS: NYSTATIN 100,000 UNITS/GM TOPICAL PWD 15 GM TOP SCH ×2 (09:01→21:10)
[2016-12-14] MEDS: PRIMIDONE 250 MG TAB PO SCH ×2 (10:22→21:07)
--- NOTE | 2016-12-14 10:23 | IPNPDOC ---
Subjective Date Seen The patient was seen on 12/14/16. Subjective Chief Complaint/HPI The patient is a 66-year-old female admitted with a reason for visit of Symptomatic Anemia. Events since last encounter no complaints. no bowel movement since admission Objective Physical Examination General Exam: Positive: Alert, Cooperative, No Acute Distress Eye Exam: Positive: PERRLA, Conjunctiva & lids normal, EOMI, Negative: Sclera icteric ENT Exam: Positive: Atraumatic, Mucous membr. moist/pink, Pharynx Normal Neck Exam: Positive: Supple, Negative: JVD, thyromegaly Chest Exam: Positive: Clear to auscultation, Diminished Heart Exam: Positive: Rate Normal, Regular Rhythm, Normal S1, Normal S2, Negative: Murmurs, Rubs Abdomen Exam: Positive: Normal bowel sounds, Soft, Negative: Tenderness, Hepatospenomegaly Extremity Exam: Positive: Edema Assessment /Plan Problems (1) Hypoglycemia Status: Resolved Problem Text: Had asymptomatic hypoglycemia this am will hold levemir insulin and lispo HS insulin will continue with lispro ac as per sliding scale. (2) Symptomatic anemia Status: Resolved Problem Text: received 1.5 units of prbc will monitor hh No bleeding anemia of chronic disease. will check iron studies, vit b12 and folate levels. (3) Hyponatremia Status: Resolved Problem Text: some acute worsening of hyponatremia has fluid overload will continue with diuretics monitor. 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 (6) Diabetes Status: Chronic Problem Text: hypoglycemia will hold levemir today and continue only lispro before meals. (7) Weakness generalized Status: Chronic Response to Treatment: Worse (8) CKD (chronic kidney disease), stage III Status: Chronic Response to Treatment: Stable (9) Hypothyroid Status: Chronic Response to Treatment: Stable (10) Hypertension Status: Chronic Response to Treatment: Stable (11) Rheumatoid arthritis Status: Chronic (12) Essential tremor Status: Chronic (13) Depression Status: Chronic (14) Restless leg syndrome Status: Chronic (15) Hyperlipidemia Status: Chronic Plan/VTE VTE Prophylaxis Ordered?: Yes VS, I&O, 24H, Fishbone Vital Signs/I&O Vital Signs Date Time Temp Pulse Resp B/P (MAP) Pulse Ox O2 Delivery O2 Flow Rate FiO2 12/14/16 06:00 96.7 67 17 129/58 (81) 97 Room Air I&O- Last 24 Hours up to 6 AM 12/14/16 06:00 Intake Total 1680 ml Balance 1680 ml Laboratory Data 24H LABS Laboratory Tests 2 12/13/16 11:43: Bedside Glucose (Misc Panel) 155H 12/13/16 16:30: Bedside Glucose (Misc Panel) 206H 12/13/16 19:45: Bedside Glucose (Misc Panel) 219H 12/14/16 05:23: White Blood Count 6.3, Red Blood Count 3.38L, Hemoglobin 9.0L, Hematocrit 28.3L , Mean Corpuscular Volume 83.5, Mean Corpuscular Hemoglobin 26.7L, Mean Corpuscular Hemoglobin Concent 32.0, Red Cell Distribution Width 16.6H, Platelet Count 288, Neutrophils (%) (Auto) 62.3, Lymphocytes (%) (Auto) 19.1L, Monocytes (%) (Auto) 7.3H, Eosinophils (%) (Auto) 6.6H, Basophils (%) (Auto) 1.3H, Neutrophils # (Auto) 3.9, Lymphocytes # (Auto) 1.4L, Monocytes # (Auto) 0.5, Eosinophils # (Auto) 0.4, Basophils # (Auto) 0.1, Large Unclassified Cells % 3.4, Large Unclassified Cells # 0.2, Anion Gap 9, Glomerular Filtration Rate 41.1L, Blood Urea Nitrogen 49H, Creatinine 1.37H, Sodium Level 133L, Potassium Level 4.3, Chloride Level 100, Carbon Dioxide Level 24, Calcium Level 8.9 CBC/BMP Laboratory Tests 12/14/16 05:23 Red Blood Count 3.38 L, Mean Corpuscular Volume 83.5, Mean Corpuscular Hemoglobin 26.7 L, Mean Corpuscular Hemoglobin Concent 32.0, Red Cell Distribution Width 16.6 H, Neutrophils (%) (Auto) 62.3, Lymphocytes (%) (Auto) 19.1 L, Monocytes (%) (Auto) 7.3 H, Eosinophils (%) (Auto) 6.6 H, Basophils (%) (Auto) 1.3 H, Neutrophils # (Auto) 3.9, Lymphocytes # (Auto) 1.4 L, Monocytes # (Auto) 0.5, Eosinophils # (Auto) 0.4, Basophils # (Auto) 0.1, Calcium Level 8.9 LIZ AGUILAR MD Dec 14, 2016 10:23
[2016-12-14] MEDS ORDERED: BISACODYL 10 MG SUPP PR PRN (10:30)
[2016-12-14] MEDS: MIRALAX *UNIT DOSE* 17GM PACKET PO SCH (10:35)
[2016-12-14] MEDS: BISACODYL 5 MG TAB PO SCH (10:35)
[2016-12-15] VITALS (7 sets, daily range): BP systolic 112–136; BP diastolic 56–67
[2016-12-15] MEDS: HEPARIN SOD (PORCINE) 5000 UNITS/ML VIAL SC SCH ×3 (05:34→21:06)
[2016-12-15 05:48] LABS: BASO # 0.1 K/mm3 (0.0-0.2); BASO % 1.2 % (0.0-1.0); EOS # 0.4 K/mm3 (0.0-0.50); EOS % 5.7 % (0.0-3.0); LARGE UNSTAINED CELL # 0.2 K/mm3 (0.0-0.4); LARGE UNSTAINED CELL % 2.4 % (0.0-4.0); LYMPH # 1.4 K/mm3 (1.5-4.5); LYMPH % 17.6 % (24.0-44.0); MEAN CORPUSCULAR HEMOGLOBIN 26.5 pg (27.0-33.0); MEAN CORPUSCULAR HGB CONC 31.6 g/dl (32.0-36.5); MONO # 0.4 K/mm3 (0.0-0.8); MONO % 5.9 % (0.0-5.0); NEUTROPHILS # 4.9 K/mm3 (1.8-7.7); NEUTROPHILS % 67.2 % (36.0-66.0); PLATELET COUNT, AUTOMATED 306 k/mm3 (150-450); RED CELL DISTRIBUTION WIDTH 16.9 % (11.5-14.5); WHITE BLOOD COUNT 7.2 K/mm3 (4.0-10.0)
[2016-12-15 06:02] LABS: CALCIUM LEVEL 9.5 MG/DL (8.8-10.2); CREATININE FOR GFR 1.38 MG/DL (0.55-1.02); GLOMERULAR FILTRATION RATE 40.7 (>45); POTASSIUM SERUM 4.4 MEQ/L (3.5-5.1)
[2016-12-15] MEDS: SENOKOT S TAB PO SCH ×2 (09:00→20:58)
[2016-12-15] MEDS: BISACODYL 5 MG TAB PO SCH (09:00)
[2016-12-15] MEDS: MIRALAX *UNIT DOSE* 17GM PACKET PO SCH (09:00)
[2016-12-15] MEDS: HumaLOG INSULIN (NovoLOG) PER UNIT SC SCH ×3 (09:06→17:57)
[2016-12-15] MEDS: rOPINIRole 1MG TAB PO SCH ×3 (09:42→21:05)
[2016-12-15] MEDS: ATORVASTATIN 20 MG TAB PO SCH (09:43)
[2016-12-15] MEDS: SPIRONOLACTONE 50 MG TAB PO SCH (09:43)
[2016-12-15] MEDS: PRAMIPEXOLE 0.25 MG TAB PO SCH ×2 (09:43→21:05)
[2016-12-15] MEDS: PARoxetine 20 MG TAB PO SCH (09:44)
[2016-12-15] MEDS: PRIMIDONE 250 MG TAB PO SCH ×2 (09:44→21:06)
[2016-12-15] MEDS: ASPIRIN 81 MG ENTERIC TAB PO SCH (09:44)
[2016-12-15] MEDS: LISINOPRIL 40 MG TAB PO SCH (09:44)
[2016-12-15] MEDS: buPROPion 100 MG TAB PO SCH ×3 (09:44→21:06)
[2016-12-15] MEDS: FUROSEMIDE 40 MG TAB PO SCH ×2 (09:45→17:54)
[2016-12-15] MEDS: LEVEMIR (INSULIN DETEMIR) 1 UNITS/0.01ML SC SCH (09:46)
[2016-12-15] MEDS: NYSTATIN 100,000 UNITS/GM TOPICAL PWD 15 GM TOP SCH ×2 (09:48→21:07)
[2016-12-15 10:11] LABS: VITAMIN B12 LEVEL 666 PG/ML (247-911)
[2016-12-15 10:13] LABS: FOLATE > 24.0 NG/ML (>5.4)
[2016-12-15 10:27] LABS: MEAN CORPUSCULAR HEMOGLOBIN 26.6 pg (27.0-33.0); MEAN CORPUSCULAR HGB CONC 31.3 g/dl (32.0-36.5); RED CELL DISTRIBUTION WIDTH 16.8 % (11.5-14.5); WHITE BLOOD COUNT 7.5 K/mm3 (4.0-10.0)
[2016-12-15 11:02] LABS: CALCIUM LEVEL 9.2 MG/DL (8.8-10.2); CREATININE FOR GFR 1.62 MG/DL (0.55-1.02); GLOMERULAR FILTRATION RATE 33.8 (>45); POTASSIUM SERUM 4.6 MEQ/L (3.5-5.1)
[2016-12-16 02:00] VITALS: BP 115/57
[2016-12-16] MEDS: HEPARIN SOD (PORCINE) 5000 UNITS/ML VIAL SC SCH ×3 (05:13→21:18)
[2016-12-16 06:00] VITALS: BP 123/59
[2016-12-16 06:23] LABS: BASO # 0.1 K/mm3 (0.0-0.2); BASO % 1.5 % (0.0-1.0); EOS # 0.4 K/mm3 (0.0-0.50); EOS % 5.3 % (0.0-3.0); LARGE UNSTAINED CELL # 0.1 K/mm3 (0.0-0.4); LYMPH # 1.5 K/mm3 (1.5-4.5); LYMPH % 20.2 % (24.0-44.0); MEAN CORPUSCULAR HEMOGLOBIN 26.8 pg (27.0-33.0); MEAN CORPUSCULAR HGB CONC 31.6 g/dl (32.0-36.5); MEAN CORPUSCULAR VOLUME 84.7 fl (80.0-96.0); MONO # 0.4 K/mm3 (0.0-0.8); MONO % 6.2 % (0.0-5.0); NEUTROPHILS # 4.4 K/mm3 (1.8-7.7); NEUTROPHILS % 64.7 % (36.0-66.0); PLATELET COUNT, AUTOMATED 310 k/mm3 (150-450); RED CELL DISTRIBUTION WIDTH 17.2 % (11.5-14.5); WHITE BLOOD COUNT 6.8 K/mm3 (4.0-10.0)
[2016-12-16 06:30] LABS: CALCIUM LEVEL 9.2 MG/DL (8.8-10.2); CREATININE FOR GFR 1.74 MG/DL (0.55-1.02); GLOMERULAR FILTRATION RATE 31.2 (>45); POTASSIUM SERUM 4.5 MEQ/L (3.5-5.1)
[2016-12-16] MEDS: HumaLOG INSULIN (NovoLOG) PER UNIT SC SCH ×3 (08:15→17:13)
[2016-12-16] MEDS: MIRALAX *UNIT DOSE* 17GM PACKET PO SCH (09:12)
[2016-12-16] MEDS: LEVEMIR (INSULIN DETEMIR) 1 UNITS/0.01ML SC SCH (09:12)
[2016-12-16] MEDS: ASPIRIN 81 MG ENTERIC TAB PO SCH (09:13)
[2016-12-16] MEDS: SPIRONOLACTONE 50 MG TAB PO SCH (09:13)
[2016-12-16] MEDS: rOPINIRole 1MG TAB PO SCH ×3 (09:13→20:29)
[2016-12-16] MEDS: BISACODYL 5 MG TAB PO SCH (09:13)
[2016-12-16] MEDS: ATORVASTATIN 20 MG TAB PO SCH (09:13)
[2016-12-16] MEDS: buPROPion 100 MG TAB PO SCH ×3 (09:13→20:29)
[2016-12-16] MEDS: PARoxetine 20 MG TAB PO SCH (09:13)
[2016-12-16] MEDS: LISINOPRIL 40 MG TAB PO SCH (09:13)
[2016-12-16] MEDS: FUROSEMIDE 40 MG TAB PO SCH ×2 (09:13→17:13)
[2016-12-16] MEDS: PRAMIPEXOLE 0.25 MG TAB PO SCH ×2 (09:14→20:28)
[2016-12-16] MEDS: SENOKOT S TAB PO SCH ×2 (09:14→20:29)
[2016-12-16] MEDS: NYSTATIN 100,000 UNITS/GM TOPICAL PWD 15 GM TOP SCH ×2 (09:14→20:29)
[2016-12-16] MEDS: PRIMIDONE 250 MG TAB PO SCH ×2 (09:14→20:28)
[2016-12-16 10:00] VITALS: BP 110/55
[2016-12-16 14:00] VITALS: BP 124/75
[2016-12-16 22:00] VITALS: BP 138/64
[2016-12-17 02:00] VITALS: BP 128/63
[2016-12-17] MEDS: HEPARIN SOD (PORCINE) 5000 UNITS/ML VIAL SC SCH ×3 (05:33→20:26)
[2016-12-17 06:00] VITALS: BP 118/59
[2016-12-17 06:32] LABS: BASO # 0.1 K/mm3 (0.0-0.2); BASO % 1.7 % (0.0-1.0); EOS # 0.5 K/mm3 (0.0-0.50); EOS % 6.4 % (0.0-3.0); LARGE UNSTAINED CELL # 0.2 K/mm3 (0.0-0.4); LARGE UNSTAINED CELL % 2.1 % (0.0-4.0); LYMPH # 1.7 K/mm3 (1.5-4.5); LYMPH % 21.1 % (24.0-44.0); MEAN CORPUSCULAR HEMOGLOBIN 26.7 pg (27.0-33.0); MEAN CORPUSCULAR HGB CONC 31.4 g/dl (32.0-36.5); MEAN CORPUSCULAR VOLUME 85.2 fl (80.0-96.0); MONO # 0.4 K/mm3 (0.0-0.8); MONO % 5.6 % (0.0-5.0); NEUTROPHILS # 4.7 K/mm3 (1.8-7.7); NEUTROPHILS % 63.2 % (36.0-66.0); PLATELET COUNT, AUTOMATED 321 k/mm3 (150-450); WHITE BLOOD COUNT 7.4 K/mm3 (4.0-10.0)
[2016-12-17 06:49] LABS: CALCIUM LEVEL 9.3 MG/DL (8.8-10.2); CREATININE FOR GFR 2.01 MG/DL (0.55-1.02); GLOMERULAR FILTRATION RATE 26.4 (>45); POTASSIUM SERUM 4.6 MEQ/L (3.5-5.1)
[2016-12-17] MEDS: HumaLOG INSULIN (NovoLOG) PER UNIT SC SCH ×3 (07:57→17:24)
[2016-12-17] MEDS: MIRALAX *UNIT DOSE* 17GM PACKET PO SCH (09:12)
[2016-12-17] MEDS: PRAMIPEXOLE 0.25 MG TAB PO SCH ×2 (09:13→20:27)
[2016-12-17] MEDS: buPROPion 100 MG TAB PO SCH ×3 (09:13→20:27)
[2016-12-17] MEDS: rOPINIRole 1MG TAB PO SCH ×3 (09:13→20:27)
[2016-12-17] MEDS: FUROSEMIDE 40 MG TAB PO SCH (09:13)
[2016-12-17] MEDS: ATORVASTATIN 20 MG TAB PO SCH (09:14)
[2016-12-17] MEDS: SENOKOT S TAB PO SCH ×2 (09:14→20:27)
[2016-12-17] MEDS: PARoxetine 20 MG TAB PO SCH (09:14)
[2016-12-17] MEDS: LISINOPRIL 40 MG TAB PO SCH (09:14)
[2016-12-17] MEDS: SPIRONOLACTONE 50 MG TAB PO SCH (09:14)
[2016-12-17] MEDS: ASPIRIN 81 MG ENTERIC TAB PO SCH (09:14)
[2016-12-17] MEDS: BISACODYL 5 MG TAB PO SCH (09:14)
[2016-12-17] MEDS: NYSTATIN 100,000 UNITS/GM TOPICAL PWD 15 GM TOP SCH ×2 (09:15→22:00)
[2016-12-17] MEDS: PRIMIDONE 250 MG TAB PO SCH ×2 (09:15→20:27)
[2016-12-17] MEDS: LEVEMIR (INSULIN DETEMIR) 1 UNITS/0.01ML SC SCH (09:17)
[2016-12-17 10:00] VITALS: BP 122/64
[2016-12-17 14:00] VITALS: BP 122/60
--- NOTE | 2016-12-17 15:20 | IPNPDOC ---
Date Seen The patient was seen on 12/17/16. Progress Note Hospitalist Progress Note Subjective: Patient is essentially nonverbal, she does get agitated with sternal rub and briefly opens her eyes when I ask her to open her eyes. She otherwise seems to be lying comfortably in bed, and the nursing staff tells me that this is more or less how she is also time. Objective: Physical Exam: Vitals: Vital Sign - Last 24 Hours 12/16/16 12/17/16 12/17/16 12/17/16 22:00 02:00 06:00 10:00 Temp 97.2 98.6 97.0 97.5 Pulse 73 73 72 76 Resp 20 19 19 18 B/P (MAP) 138/64 (88) 128/63 (84) 118/59 (78) 122/64 (83) Pulse Ox 97 97 96 94 O2 Delivery Room Air Room Air Room Air Room Air General: Lying sleeping in bed, gets agitated with sternal rub HEENT: Normocephalic, atraumatic, moist mucous membranes CV: Regular rate and rhythm Lungs: Clear to auscultation bilaterally Abd: Soft, nontender, nondistended Extremities: Trace edema Neuro: Nonverbal Psych: Unable to assess Labs and Imaging: Laboratory Tests 12/16/16 05:40 Red Blood Count 3.55 L, Mean Corpuscular Volume 84.7, Mean Corpuscular Hemoglobin 26.8 L, Mean Corpuscular Hemoglobin Concent 31.6 L, Red Cell Distribution Width 17.2 H, Neutrophils (%) (Auto) 64.7, Lymphocytes (%) (Auto) 20.2 L, Monocytes (%) (Auto) 6.2 H, Eosinophils (%) (Auto) 5.3 H, Basophils (%) (Auto) 1.5 H, Neutrophils # (Auto) 4.4, Lymphocytes # (Auto) 1.5, Monocytes # ( Auto) 0.4, Eosinophils # (Auto) 0.4, Basophils # (Auto) 0.1, Calcium Level 9.2 12/17/16 06:13 Red Blood Count 3.66 L, Mean Corpuscular Volume 85.2, Mean Corpuscular Hemoglobin 26.7 L, Mean Corpuscular Hemoglobin Concent 31.4 L, Red Cell Distribution Width 17.0 H, Neutrophils (%) (Auto) 63.2, Lymphocytes (%) (Auto) 21.1 L, Monocytes (%) (Auto) 5.6 H, Eosinophils (%) (Auto) 6.4 H, Basophils (%) (Auto) 1.7 H, Neutrophils # (Auto) 4.7, Lymphocytes # (Auto) 1.7, Monocytes # ( Auto) 0.4, Eosinophils # (Auto) 0.5, Basophils # (Auto) 0.1, Calcium Level 9.3 Assessment and Plan: 66-year-old female with diabetes mellitus type 2, hypertension, hypothyroidism, chronic hyponatremia, history of pituitary tumor status post resection with resultant acromegaly, tremors, depression, hyperlipidemia, chronic kidney disease stage III, uterine prolapse, rheumatoid arthritis, morbid obesity who is brought in by her family for progressive cognitive and physical decline since her 's 3 months ago. She was initially admitted with symptomatic anemia, and has since been transitioned to alternate level of care while she awaits either some rehabilitation or potentially long-term care. 1. Symptomatic anemia: Patient's hemoglobin upon admission was 7.8, and she responded appropriately to a 2 unit transfusion of PRBCs. Hemoglobin has now been stable in the nines, and she has had no bleeding. A fecal occult blood test is negative. The family reports that the patient occasionally has some bloody vaginal discharge, which has not been noted by the nursing staff. A transabdominal pelvic ultrasound shows normal thickness of the endometrial stripe, but the patient declined an endovaginal ultrasound, and visualization of her adnexa was quite limited secondary to her body habitus. The patient will need an outpatient colonoscopy, as well as outpatient gynecologic follow-up. 2. Acute on chronic hyponatremia: The patient's sodium upon admission was 127. She appeared to have increased bilateral lower extremity edema, so her Lasix was increased. Her sodium has now improved to and stabilized around the mid 130s. 3. Acute on chronic kidney disease stage III: The patient's baseline creatinine appears to be in the low ones. She had previously been at baseline, but the last couple days, her creatinine has been creeping up. I suspect this is secondary to the increase in her Lasix. At this time, we will hold her Lasix, CATALINO inhibitor, and spironolactone. We will also check a UA. 4. Diabetes mellitus type 2: Currently holding home Jardiance, glipizide, and alogliptin. The patient reportedly takes Lantus 69 units daily at home. She currently is on Levemir 20 units daily, but is consistently requiring approximately 10-12 units of sliding scale insulin daily. I will increase her Levemir to 25 units daily, as well as continue sliding scale insulin while in house. We will continue to adjust her insulin dose as necessary. 5. Hypertension: BP is currently well controlled. We will be temporarily stopping her CATALINO inhibitor, spironolactone, Lasix given her acute on chronic kidney disease. Continue to monitor blood pressure. 6. Hypothyroidism: There is no Synthroid reported on the patient's home medication list. The TSH was checked and was within normal limits. 7. Rheumatoid arthritis: Per the family, the patient has not received any treatment for this in the last 18 months. She will need outpatient rheumatology follow-up. 8. Depression: Continue home Wellbutrin and Paxil. The family reports a history of dementia, but she seems awfully young to have advanced dementia to this degree. I'm concerned given the report that she has declined significantly since her 's that this may represent an acute depressive episode. Have spoken with Dr. Villatoro of psychiatry will evaluate the patient. 9. Tremors: Continue home Mirapex, Mysoline, Requip, methazolamide. 10. Hyperlipidemia: Continue home aspirin and statin. DVT prophylaxis: Heparin Dispo: case management is currently working with the family to pursue either long-term care or potentially short-term rehabilitation; at this point, we'll continue to monitor her for an improvement in her acute on chronic kidney disease, and will await psychiatry's evaluation VS, I&O, 24H, Fishbone Vital Signs/I&O Vital Signs Date Time Temp Pulse Resp B/P (MAP) Pulse Ox O2 Delivery O2 Flow Rate FiO2 12/17/16 10:00 97.5 76 18 122/64 (83) 94 Room Air I&O- Last 24 Hours up to 6 AM 12/17/16 06:00 Intake Total 960 ml Output Total 0 ml Balance 960 ml Laboratory Data 24H LABS Laboratory Tests 2 12/16/16 16:59: Bedside Glucose (Misc Panel) 204H 12/16/16 20:25: Bedside Glucose (Misc Panel) 170H 12/17/16 06:13: White Blood Count 7.4, Red Blood Count 3.66L, Hemoglobin 9.8L, Hematocrit 31.2L , Mean Corpuscular Volume 85.2, Mean Corpuscular Hemoglobin 26.7L, Mean Corpuscular Hemoglobin Concent 31.4L, Red Cell Distribution Width 17.0H, Platelet Count 321, Neutrophils (%) (Auto) 63.2, Lymphocytes (%) (Auto) 21.1L, Monocytes (%) (Auto) 5.6H, Eosinophils (%) (Auto) 6.4H, Basophils (%) (Auto) 1.7H, Neutrophils # (Auto) 4.7, Lymphocytes # (Auto) 1.7, Monocytes # (Auto) 0.4 , Eosinophils # (Auto) 0.5, Basophils # (Auto) 0.1, Large Unclassified Cells % 2.1, Large Unclassified Cells # 0.2, Anion Gap 9, Glomerular Filtration Rate 26.4L, Blood Urea Nitrogen 67H, Creatinine 2.01H, Sodium Level 135L, Potassium Level 4.6, Chloride Level 102, Carbon Dioxide Level 24, Calcium Level 9.3 12/17/16 11:46: Bedside Glucose (Misc Panel) 256H CBC/BMP Laboratory Tests 12/17/16 06:13 Red Blood Count 3.66 L, Mean Corpuscular Volume 85.2, Mean Corpuscular Hemoglobin 26.7 L, Mean Corpuscular Hemoglobin Concent 31.4 L, Red Cell Distribution Width 17.0 H, Neutrophils (%) (Auto) 63.2, Lymphocytes (%) (Auto) 21.1 L, Monocytes (%) (Auto) 5.6 H, Eosinophils (%) (Auto) 6.4 H, Basophils (%) (Auto) 1.7 H, Neutrophils # (Auto) 4.7, Lymphocytes # (Auto) 1.7, Monocytes # ( Auto) 0.4, Eosinophils # (Auto) 0.5, Basophils # (Auto) 0.1, Calcium Level 9.3 Microbiology Microbiology 12/14/16 Stool Occult Blood (DANIEL) - Final, Complete DOUGLAS NICHOLS Dec 17, 2016 15:20
--- NOTE | 2016-12-17 15:48 | MHIPNPDOC ---
[facility] Progress Note Progress Note DATE OF SERVICE: 12/17/16 HISTORY: Evaluated 66 year old female with history of multiple medical problems including hyponatremia, hypothyroidism, CRD stage III, h/o pituitary tumor, status post resection, depression and dementia. This last medical problem is not documented. According to history she is on Paxil and Wellbutrin. Patient is not willing to answer any question, she was found sleeping, she was awakened. She was not irritable or upset, she seemed confused. She only answered , nodding her head when this song writer mentioned the of her three months ago. She's female dressed in hospital clothes, resting in bed, looking older than stated, pale, obese who seems confused. She doesn't talk to this song writer. Thought process and thought content could not be evaluated due to patient's mental status. She doesn't seem responding to internal stimuli. She has psycmhomotor retardation, intention tremors. her mood and affect are blunted , there's no emotional expressions in her face or in her eyes. Patient could have altered mental status secondary to multiple factors: hypothyroidism, CDK stage III, hyponatremia, h/o pituitary tumor ( already resected), depression and dementia. patient is taking Paxil ans is taking diuretics. Paxil can cause hyponatremia, as almost all psychiatric medication and combined with the diuretic is not helping her sodium problem. It is not impossible for a patient her age to suffer dementia, she could be demented and the depressive component + the grief is making it worse. I recommend to take her off Paxil, give her a trial with Aricept 5 mgs PO QD, do an MRI. Will f/u tomorrow. Thanks for the consult. VITAL SIGNS: See below. DIAGNOSES: 1. R/O Alzheimer's Dementia 2. R/ O Major Depressive Episode secondary to other medical problems 3. Bereavemtn ASSESSMENT: Patient looks depressed, has psychomotor retardation, her depression could be secondary to her multiple medical problems but she has changes in her head CT suggestive of Alzheimer's dementia. SSRI's are not a good option at this time, since they cause hyponatremia and at this time is worsening and aggravating it since she's taking diuretics. An MRI would be helpful to r/o vascular problems that could be contributing to her mental status. MANAGEMENT PLAN: As above TIME SPENT: 30 minutes. Vital Signs Vital Signs Date Time Temp Pulse Resp B/P (MAP) Pulse Ox O2 Delivery O2 Flow Rate FiO2 12/17/16 10:00 97.5 76 18 122/64 (83) 94 Room Air Laboratory Data 24H Labs Laboratory Tests 2 12/16/16 16:59: Bedside Glucose (Misc Panel) 204H 12/16/16 20:25: Bedside Glucose (Misc Panel) 170H 12/17/16 06:13: White Blood Count 7.4, Red Blood Count 3.66L, Hemoglobin 9.8L, Hematocrit 31.2L , Mean Corpuscular Volume 85.2, Mean Corpuscular Hemoglobin 26.7L, Mean Corpuscular Hemoglobin Concent 31.4L, Red Cell Distribution Width 17.0H, Platelet Count 321, Neutrophils (%) (Auto) 63.2, Lymphocytes (%) (Auto) 21.1L, Monocytes (%) (Auto) 5.6H, Eosinophils (%) (Auto) 6.4H, Basophils (%) (Auto) 1.7H, Neutrophils # (Auto) 4.7, Lymphocytes # (Auto) 1.7, Monocytes # (Auto) 0.4 , Eosinophils # (Auto) 0.5, Basophils # (Auto) 0.1, Large Unclassified Cells % 2.1, Large Unclassified Cells # 0.2, Anion Gap 9, Glomerular Filtration Rate 26.4L, Blood Urea Nitrogen 67H, Creatinine 2.01H, Sodium Level 135L, Potassium Level 4.6, Chloride Level 102, Carbon Dioxide Level 24, Calcium Level 9.3 12/17/16 11:46: Bedside Glucose (Misc Panel) 256H CBC/BMP Laboratory Tests 12/17/16 06:13 Red Blood Count 3.66 L, Mean Corpuscular Volume 85.2, Mean Corpuscular Hemoglobin 26.7 L, Mean Corpuscular Hemoglobin Concent 31.4 L, Red Cell Distribution Width 17.0 H, Neutrophils (%) (Auto) 63.2, Lymphocytes (%) (Auto) 21.1 L, Monocytes (%) (Auto) 5.6 H, Eosinophils (%) (Auto) 6.4 H, Basophils (%) (Auto) 1.7 H, Neutrophils # (Auto) 4.7, Lymphocytes # (Auto) 1.7, Monocytes # ( Auto) 0.4, Eosinophils # (Auto) 0.5, Basophils # (Auto) 0.1, Calcium Level 9.3 Current Medications Current Medications Aspirin (Ecotrin) 81 mg DAILY PO Last administered on 12/17/16 09:14; Start at 09:00; Stop 01/09/17 at 08:59 Atorvastatin Calcium (Lipitor) 40 mg DAILY PO Last administered on 12/17/16 09: 14; Start 12/11/16 at 09:00; Stop 01/10/17 at 08:59 Bisacodyl (Dulcolax Suppository) 10 mg DAILYPRN PRN [place] CONSTIPATION; Start at 10:30; Stop 01/13/17 at 10:29 Bisacodyl (Dulcolax Tab) 10 mg DAILY PO Last administered on 12/17/16 09:14; Start 12/14/16 at 09:00; Stop 01/13/17 at 08:59 Bupropion HCl (Wellbutrin) 100 mg TID PO Last administered on 12/17/16 09:13; Start 12/10/16 at 21:00; Stop 01/09/17 at 20:59 Dextrose (Dextrose 50%) 25 ml ASDIRECTED PRN IV SEE LABEL COMMENTS; Start 12/10 at 18:45; Stop 01/09/17 at 18:44 Furosemide (Lasix) 40 mg BID@0900,1700 PO Last administered on 12/17/16 09:13; Start 12/10/16 at 17:00; Stop 12/17/16 at 11:47; Status DC Glucagon (Glucagon) 1 mg ASDIRECTED PRN SC SEE LABEL COMMENTS; Start 12/10/16 at 18:45; Stop 01/09/17 at 18:44 Glucose (Glucose) 16 GM ASDIRECTED PRN PO SEE LABEL COMMENTS; Start 12/10/16 at 18:45; Stop 01/09/17 at 18:44 Heparin Sodium (Porcine) (Heparin) 5,000 units Q8H SC Last administered on 05:33; Start 12/10/16 at 22:00; Stop 12/19/16 at 21:59 Home Med (Med Rec Complete!) ASDIRECTED XX ; Start 12/10/16 at 16:45; Stop at 16:46; Status DC Insulin Detemir (Levemir Insulin) 20 units DAILY SC Last administered on 09:17; Start 12/12/16 at 09:00; Stop 12/17/16 at 14:59; Status DC Insulin Detemir (Levemir Insulin) 25 units DAILY SC ; Start 12/18/16 at 09:00; Stop 01/17/17 at 08:59 Insulin Detemir (Levemir Insulin) 69 units DAILY SC Last administered on 10:41; Start 12/10/16 at 09:00; Stop 12/11/16 at 11:00; Status DC Insulin Human Lispro (HumaLOG INSULIN) SEE PROTOCOL TABLE AC SC Last administered on 12/17/16 12:07; Start 12/11/16 at 07:30; Stop 01/10/17 at 07:29 Insulin Human Lispro (HumaLOG INSULIN) SEE PROTOCOL TABLE QHS SC ; Start at 21:00; Stop 12/12/16 at 10:53; Status DC Lisinopril (Prinivil) 40 mg DAILY PO Last administered on 12/17/16 09:14; Start 12/10/16 at 09:00; Stop 12/17/16 at 11:47; Status DC Methazolamide (Neptazane) 50 mg BID PO Last administered on 12/17/16 09:13; Start 12/10/16 at 21:00; Stop 01/09/17 at 20:59 Nystatin (Mycostatin Powder, Nystop) between affected fingers BID TOP Last administered on 12/17/16 09:15; Start 12/10/16 at 21:00; Stop 01/09/17 at 20:59 Paroxetine HCl (PAXil) 40 mg DAILY PO Last administered on 12/17/16 09:14; Start 12/10/16 at 09:00; Stop 01/09/17 at 08:59 Polyethylene Glycol (Miralax) 1 pkt DAILY PO Last administered on 12/17/16 09: 12; Start 12/14/16 at 09:00; Stop 01/13/17 at 08:59 Pramipexole Dihydrochloride (Mirapex) 0.5 mg BID PO Last administered on 09:13; Start 12/10/16 at 21:00; Stop 01/09/17 at 20:59 Primidone (Mysoline) 125 mg QPM PO Last administered on 12/16/16 20:28; Start 12/10/16 at 21:00; Stop 01/09/17 at 20:59 Primidone (Mysoline) 250 mg QAM PO Last administered on 12/17/16 09:15; Start 12/11/16 at 09:00; Stop 01/10/17 at 08:59 Ropinirole HCl (Requip) 2 mg TID PO Last administered on 12/17/16 09:13; Start 12/10/16 at 21:00; Stop 01/09/17 at 20:59 Senna/Docusate Sodium (Senokot S) 2 tab BID PO Last administered on 12/17/16 09 :14; Start 12/13/16 at 09:00; Stop 01/12/17 at 08:59 Spironolactone (Aldactone) 100 mg DAILY PO Last administered on 12/17/16 09:14 ; Start 12/10/16 at 09:00; Stop 12/17/16 at 11:47; Status DC Allergies Coded Allergies: No Known Allergies (Unverified , 11/20/16) PAUL STOKES MD Dec 17, 2016 15:48
[2016-12-17 22:00] VITALS: BP 116/54
[2016-12-18 02:00] VITALS: BP 124/58
[2016-12-18 06:00] VITALS: BP 116/59
[2016-12-18] MEDS: HEPARIN SOD (PORCINE) 5000 UNITS/ML VIAL SC SCH ×3 (06:28→20:26)
[2016-12-18 07:03] LABS: BASO # 0.1 K/mm3 (0.0-0.2); BASO % 1.5 % (0.0-1.0); EOS # 0.3 K/mm3 (0.0-0.50); EOS % 3.5 % (0.0-3.0); LARGE UNSTAINED CELL # 0.1 K/mm3 (0.0-0.4); LARGE UNSTAINED CELL % 1.9 % (0.0-4.0); LYMPH # 1.5 K/mm3 (1.5-4.5); LYMPH % 18.2 % (24.0-44.0); MEAN CORPUSCULAR HEMOGLOBIN 26.8 pg (27.0-33.0); MEAN CORPUSCULAR HGB CONC 31.7 g/dl (32.0-36.5); MEAN CORPUSCULAR VOLUME 84.3 fl (80.0-96.0); MONO # 0.6 K/mm3 (0.0-0.8); MONO % 7.5 % (0.0-5.0); NEUTROPHILS % 67.4 % (36.0-66.0); PLATELET COUNT, AUTOMATED 287 k/mm3 (150-450); WHITE BLOOD COUNT 7.5 K/mm3 (4.0-10.0)
[2016-12-18 07:08] LABS: CALCIUM LEVEL 9.5 MG/DL (8.8-10.2); CREATININE FOR GFR 1.96 MG/DL (0.55-1.02); GLOMERULAR FILTRATION RATE 27.2 (>45); POTASSIUM SERUM 4.5 MEQ/L (3.5-5.1)
[2016-12-18] MEDS ORDERED: LEVEMIR (INSULIN DETEMIR) 1 UNITS/0.01ML SC SCH (09:00)
--- NOTE | 2016-12-18 09:52 | REP ---
MR BRAIN WITHOUT CONTRAST: HISTORY: Altered mental status. COMPARISON: 09/08/2005. The examination is limited and incomplete as only diffusion and T2-weighted images were obtained. There is no acute infarct, mass, or midline shift. The ventricular system and cortical sulci are dilated consistent with mild volume loss. There is no extracerebral collection. IMPRESSION: Limited examination demonstrating no definite abnormality. Signed by Isreal Church MD 12/18/2016 11:05 A
[2016-12-18] MEDS: HumaLOG INSULIN (NovoLOG) PER UNIT SC SCH ×3 (10:12→18:15)
[2016-12-18] MEDS: PRIMIDONE 250 MG TAB PO SCH ×2 (11:02→20:26)
[2016-12-18] MEDS: rOPINIRole 1MG TAB PO SCH ×3 (11:02→20:27)
[2016-12-18] MEDS: ASPIRIN 81 MG ENTERIC TAB PO SCH (11:02)
[2016-12-18] MEDS: DONEPEZIL 5 MG TAB PO SCH (11:03)
[2016-12-18] MEDS: BISACODYL 5 MG TAB PO SCH (11:03)
[2016-12-18] MEDS: buPROPion 100 MG TAB PO SCH ×3 (11:04→20:26)
[2016-12-18] MEDS: ATORVASTATIN 20 MG TAB PO SCH (11:04)
[2016-12-18] MEDS: SENOKOT S TAB PO SCH ×2 (11:04→20:26)
[2016-12-18] MEDS: PRAMIPEXOLE 0.25 MG TAB PO SCH ×2 (11:05→20:26)
[2016-12-18] MEDS: MIRALAX *UNIT DOSE* 17GM PACKET PO SCH (11:05)
[2016-12-18] MEDS: NYSTATIN 100,000 UNITS/GM TOPICAL PWD 15 GM TOP SCH ×2 (15:08→20:27)
[2016-12-18 22:00] VITALS: BP 117/59
--- NOTE | 2016-12-18 23:20 | MHIPNPDOC ---
[facility] Progress Note Progress Note DATE OF SERVICE: 12/18/16 HISTORY: 66 year old female with history of Anemia, Hypothyroidism, Kidney disease, history of pituitary tumor (resected), hyponatremia who lost her two months ago and is not talking, spending most of the time sleeping was evaluated yesterday and she was not showing or displaying any emotions, her mood and affect were blunted, she had poverty of speech, only answered with her head by nodding with her head (indicating a yes), when this mortgage loan underwriter asked her if her had passed 2 months ago. Her expression was listless, there was no expression in her eyes. She made no attempt to respond, interact or engage. She seemed not to be processing the information. She closed her eyes again and remained sleeping. Patient's CT scan has atrophy observed in the ventricles, suggesting Alzheimer's dementia. All the medical conditions she suffers, contribute to depression, so, she has dementia and depression and dementia. Patient is not capable of making health decisions, taking good care of herself at this time. She has NO CAPACITY to do it. This mortgage loan underwriter will follow her up and re assess tomorrow. VITAL SIGNS: See below. Vital Signs Vital Signs Date Time Temp Pulse Resp B/P (MAP) Pulse Ox O2 Delivery O2 Flow Rate FiO2 12/18/16 22:00 97.6 69 20 117/59 (78) 97 Room Air 12/18/16 02:00 Laboratory Data 24H Labs Laboratory Tests 2 12/18/16 05:49: White Blood Count 7.5, Red Blood Count 3.58L, Hemoglobin 9.6L, Hematocrit 30.2L , Mean Corpuscular Volume 84.3, Mean Corpuscular Hemoglobin 26.8L, Mean Corpuscular Hemoglobin Concent 31.7L, Red Cell Distribution Width 17.0H, Platelet Count 287, Neutrophils (%) (Auto) 67.4H, Lymphocytes (%) (Auto) 18.2L, Monocytes (%) (Auto) 7.5H, Eosinophils (%) (Auto) 3.5H, Basophils (%) (Auto) 1.5H, Neutrophils # (Auto) 5.0, Lymphocytes # (Auto) 1.5, Monocytes # (Auto) 0.6 , Eosinophils # (Auto) 0.3, Basophils # (Auto) 0.1, Large Unclassified Cells % 1.9, Large Unclassified Cells # 0.1, Anion Gap 13, Glomerular Filtration Rate 27.2L, Blood Urea Nitrogen 77H, Creatinine 1.96H, Sodium Level 140, Potassium Level 4.5, Chloride Level 106, Carbon Dioxide Level 21, Calcium Level 9.5 12/18/16 11:32: Bedside Glucose (Misc Panel) 205H 12/18/16 17:38: Urine Appearance CLEAR, Urine Color YELLOW, Urine pH 5.0, Urine Specific [place] 1.012, Urine Protein NEGATIVE, Urine Glucose (UA) NEGATIVE, Urine Ketones NEGATIVE, Urine Urobilinogen 0.2, Urine Bilirubin NEGATIVE, Urine Leukocyte Esterase NEGATIVE, Urine Blood NEGATIVE, Urine Nitrite NEGATIVE, Urine WBC (Auto) 0, Urine RBC (Auto) 0, Urine Hyaline Casts (Auto) 0, Urine Bacteria (Auto) NEGATIVE, Urine Squamous Epithelial Cells 0, Urine Sperm (Auto) 12/18/16 20:26: Bedside Glucose (Misc Panel) 228H CBC/BMP Laboratory Tests 12/18/16 05:49 Red Blood Count 3.58 L, Mean Corpuscular Volume 84.3, Mean Corpuscular Hemoglobin 26.8 L, Mean Corpuscular Hemoglobin Concent 31.7 L, Red Cell Distribution Width 17.0 H, Neutrophils (%) (Auto) 67.4 H, Lymphocytes (%) (Auto ) 18.2 L, Monocytes (%) (Auto) 7.5 H, Eosinophils (%) (Auto) 3.5 H, Basophils (% ) (Auto) 1.5 H, Neutrophils # (Auto) 5.0, Lymphocytes # (Auto) 1.5, Monocytes # (Auto) 0.6, Eosinophils # (Auto) 0.3, Basophils # (Auto) 0.1, Calcium Level 9.5 Current Medications Current Medications Aspirin (Ecotrin) 81 mg DAILY PO Last administered on 12/18/16 11:02; Start at 09:00; Stop 01/09/17 at 08:59 Atorvastatin Calcium (Lipitor) 40 mg DAILY PO Last administered on 12/18/16 11: 04; Start 12/11/16 at 09:00; Stop 01/10/17 at 08:59 Bisacodyl (Dulcolax Suppository) 10 mg DAILYPRN PRN [place] CONSTIPATION; Start at 10:30; Stop 01/13/17 at 10:29 Bisacodyl (Dulcolax Tab) 10 mg DAILY PO Last administered on 12/18/16 11:03; Start 12/14/16 at 09:00; Stop 01/13/17 at 08:59 Bupropion HCl (Wellbutrin) 100 mg TID PO Last administered on 12/18/16 20:26; Start 12/10/16 at 21:00; Stop 01/09/17 at 20:59 Dextrose (Dextrose 50%) 25 ml ASDIRECTED PRN IV SEE LABEL COMMENTS; Start 12/10 at 18:45; Stop 01/09/17 at 18:44 Donepezil HCl (AriCEPT) 5 mg DAILY PO Last administered on 12/18/16 11:03; Start 12/18/16 at 09:00; Stop 01/17/17 at 08:59 Furosemide (Lasix) 40 mg BID@0900,1700 PO Last administered on 12/17/16 09:13; Start 12/10/16 at 17:00; Stop 12/17/16 at 11:47; Status DC Glucagon (Glucagon) 1 mg ASDIRECTED PRN SC SEE LABEL COMMENTS; Start 12/10/16 at 18:45; Stop 01/09/17 at 18:44 Glucose (Glucose) 16 GM ASDIRECTED PRN PO SEE LABEL COMMENTS; Start 12/10/16 at 18:45; Stop 01/09/17 at 18:44 Heparin Sodium (Porcine) (Heparin) 5,000 units Q8H SC Last administered on 20:26; Start 12/10/16 at 22:00; Stop 12/23/16 at 21:59 Home Med (Med Rec Complete!) ASDIRECTED XX ; Start 12/10/16 at 16:45; Stop at 16:46; Status DC Insulin Detemir (Levemir Insulin) 20 units DAILY SC Last administered on 09:17; Start 12/12/16 at 09:00; Stop 12/17/16 at 14:59; Status DC Insulin Detemir (Levemir Insulin) 25 units DAILY SC ; Start 12/18/16 at 09:00; Stop 12/18/16 at 11:26; Status DC Insulin Detemir (Levemir Insulin) 25 units DAILY SC ; Start 12/19/16 at 09:00; Stop 01/18/17 at 08:59 Insulin Detemir (Levemir Insulin) 69 units DAILY SC Last administered on 10:41; Start 12/10/16 at 09:00; Stop 12/11/16 at 11:00; Status DC Insulin Human Lispro (HumaLOG INSULIN) SEE PROTOCOL TABLE AC SC Last administered on 12/18/16 18:15; Start 12/11/16 at 07:30; Stop 01/10/17 at 07:29 Insulin Human Lispro (HumaLOG INSULIN) SEE PROTOCOL TABLE QHS SC ; Start at 21:00; Stop 12/12/16 at 10:53; Status DC Lisinopril (Prinivil) 40 mg DAILY PO Last administered on 12/17/16 09:14; Start 12/10/16 at 09:00; Stop 12/17/16 at 11:47; Status DC Methazolamide (Neptazane) 50 mg BID PO Last administered on 12/18/16 20:26; Start 12/10/16 at 21:00; Stop 01/09/17 at 20:59 Nystatin (Mycostatin Powder, Nystop) between affected fingers BID TOP Last administered on 12/18/16 20:27; Start 12/10/16 at 21:00; Stop 01/09/17 at 20:59 Paroxetine HCl (PAXil) 40 mg DAILY PO Last administered on 12/17/16 09:14; Start 12/10/16 at 09:00; Stop 12/18/16 at 06:37; Status DC Polyethylene Glycol (Miralax) 1 pkt DAILY PO Last administered on 12/18/16 11: 05; Start 12/14/16 at 09:00; Stop 01/13/17 at 08:59 Pramipexole Dihydrochloride (Mirapex) 0.5 mg BID PO Last administered on 20:26; Start 12/10/16 at 21:00; Stop 01/09/17 at 20:59 Primidone (Mysoline) 125 mg QPM PO Last administered on 12/18/16 20:26; Start 12/10/16 at 21:00; Stop 01/09/17 at 20:59 Primidone (Mysoline) 250 mg QAM PO Last administered on 12/18/16 11:02; Start 12/11/16 at 09:00; Stop 01/10/17 at 08:59 Ropinirole HCl (Requip) 2 mg TID PO Last administered on 12/18/16 20:27; Start 12/10/16 at 21:00; Stop 01/09/17 at 20:59 Senna/Docusate Sodium (Senokot S) 2 tab BID PO Last administered on 12/18/16 20 :26; Start 12/13/16 at 09:00; Stop 01/12/17 at 08:59 Spironolactone (Aldactone) 100 mg DAILY PO Last administered on 12/17/16 09:14 ; Start 12/10/16 at 09:00; Stop 12/17/16 at 11:47; Status DC Allergies Coded Allergies: No Known Allergies (Unverified , 11/20/16) PAUL STOKES MD Dec 18, 2016 23:20
[2016-12-19] MEDS: HEPARIN SOD (PORCINE) 5000 UNITS/ML VIAL SC SCH ×3 (05:57→21:07)
[2016-12-19 06:00] VITALS: BP 107/54
[2016-12-19 06:54] LABS: BASO # 0.1 K/mm3 (0.0-0.2); BASO % 1.5 % (0.0-1.0); EOS # 0.4 K/mm3 (0.0-0.50); LARGE UNSTAINED CELL # 0.2 K/mm3 (0.0-0.4); LARGE UNSTAINED CELL % 2.5 % (0.0-4.0); LYMPH # 1.7 K/mm3 (1.5-4.5); LYMPH % 21.2 % (24.0-44.0); MEAN CORPUSCULAR HEMOGLOBIN 27.1 pg (27.0-33.0); MEAN CORPUSCULAR HGB CONC 32.1 g/dl (32.0-36.5); MEAN CORPUSCULAR VOLUME 84.5 fl (80.0-96.0); MONO # 0.4 K/mm3 (0.0-0.8); MONO % 5.8 % (0.0-5.0); NEUTROPHILS # 4.6 K/mm3 (1.8-7.7); PLATELET COUNT, AUTOMATED 272 k/mm3 (150-450); RED CELL DISTRIBUTION WIDTH 17.2 % (11.5-14.5); WHITE BLOOD COUNT 7.1 K/mm3 (4.0-10.0)
[2016-12-19 07:24] LABS: CALCIUM LEVEL 9.5 MG/DL (8.8-10.2); CREATININE FOR GFR 1.89 MG/DL (0.55-1.02); GLOMERULAR FILTRATION RATE 28.3 (>45); MAGNESIUM LEVEL 2.4 MG/DL (1.8-2.4); POTASSIUM SERUM 4.5 MEQ/L (3.5-5.1)
[2016-12-19] MEDS: MIRALAX *UNIT DOSE* 17GM PACKET PO SCH (08:13)
[2016-12-19] MEDS: PRAMIPEXOLE 0.25 MG TAB PO SCH ×2 (08:14→21:07)
[2016-12-19] MEDS: PRIMIDONE 250 MG TAB PO SCH ×2 (08:14→21:07)
[2016-12-19] MEDS: SENOKOT S TAB PO SCH ×2 (08:14→21:00)
[2016-12-19] MEDS: rOPINIRole 1MG TAB PO SCH ×3 (08:14→21:07)
[2016-12-19] MEDS: HumaLOG INSULIN (NovoLOG) PER UNIT SC SCH ×3 (08:14→17:22)
[2016-12-19] MEDS: DONEPEZIL 5 MG TAB PO SCH (08:15)
[2016-12-19] MEDS: ATORVASTATIN 20 MG TAB PO SCH (08:15)
[2016-12-19] MEDS: BISACODYL 5 MG TAB PO SCH (08:15)
[2016-12-19] MEDS: ASPIRIN 81 MG ENTERIC TAB PO SCH (08:15)
[2016-12-19] MEDS: buPROPion 100 MG TAB PO SCH ×3 (08:15→21:07)
[2016-12-19] MEDS: NYSTATIN 100,000 UNITS/GM TOPICAL PWD 15 GM TOP SCH ×2 (08:16→21:11)
[2016-12-19] MEDS: LEVEMIR (INSULIN DETEMIR) 1 UNITS/0.01ML SC SCH (08:16)
[2016-12-19 09:35] VITALS: BP 172/88
--- NOTE | 2016-12-19 12:44 | REP ---
KUB, ONE VIEW: HISTORY: Vomiting. A small amount of air is present in small and large intestine. There are no air fluid levels or dilated loops of intestine. There is no pneumoperitoneum. Surgical clips are present in the right upper quadrant. IMPRESSION: Nonspecific bowel gas pattern. Signed by Isreal Church MD 12/19/2016 12:46 P
[2016-12-19 14:00] VITALS: BP 133/59
[2016-12-20] MEDS: HEPARIN SOD (PORCINE) 5000 UNITS/ML VIAL SC SCH ×3 (05:55→21:12)
[2016-12-20 06:00] VITALS: BP 135/61
[2016-12-20 06:21] LABS: BASO # 0.1 K/mm3 (0.0-0.2); BASO % 1.4 % (0.0-1.0); EOS # 0.4 K/mm3 (0.0-0.50); EOS % 4.4 % (0.0-3.0); LARGE UNSTAINED CELL # 0.3 K/mm3 (0.0-0.4); LARGE UNSTAINED CELL % 3.1 % (0.0-4.0); LYMPH # 1.6 K/mm3 (1.5-4.5); LYMPH % 18.8 % (24.0-44.0); MEAN CORPUSCULAR HEMOGLOBIN 26.8 pg (27.0-33.0); MEAN CORPUSCULAR HGB CONC 31.3 g/dl (32.0-36.5); MEAN CORPUSCULAR VOLUME 85.6 fl (80.0-96.0); MONO # 0.4 K/mm3 (0.0-0.8); MONO % 4.5 % (0.0-5.0); NEUTROPHILS # 5.8 K/mm3 (1.8-7.7); NEUTROPHILS % 67.8 % (36.0-66.0); PLATELET COUNT, AUTOMATED 293 k/mm3 (150-450); RED CELL DISTRIBUTION WIDTH 17.1 % (11.5-14.5); WHITE BLOOD COUNT 8.5 K/mm3 (4.0-10.0)
[2016-12-20 06:32] LABS: CREATININE FOR GFR 1.78 MG/DL (0.55-1.02); GLOMERULAR FILTRATION RATE 30.4 (>45); POTASSIUM SERUM 4.5 MEQ/L (3.5-5.1)
[2016-12-20 06:33] LABS: CALCIUM LEVEL 9.4 MG/DL (8.8-10.2); MAGNESIUM LEVEL 2.2 MG/DL (1.8-2.4)
[2016-12-20] MEDS: ASPIRIN 81 MG ENTERIC TAB PO SCH (08:31)
[2016-12-20] MEDS: rOPINIRole 1MG TAB PO SCH ×3 (08:32→21:11)
[2016-12-20] MEDS: PRIMIDONE 250 MG TAB PO SCH ×2 (08:37→21:11)
[2016-12-20] MEDS: ATORVASTATIN 20 MG TAB PO SCH (08:38)
[2016-12-20] MEDS: DONEPEZIL 5 MG TAB PO SCH (08:38)
[2016-12-20] MEDS: buPROPion 100 MG TAB PO SCH ×3 (08:38→21:11)
[2016-12-20] MEDS: PRAMIPEXOLE 0.25 MG TAB PO SCH ×2 (08:38→21:10)
[2016-12-20] MEDS: LEVEMIR (INSULIN DETEMIR) 1 UNITS/0.01ML SC SCH (08:39)
[2016-12-20] MEDS: HumaLOG INSULIN (NovoLOG) PER UNIT SC SCH ×3 (08:40→17:59)
[2016-12-20] MEDS: NYSTATIN 100,000 UNITS/GM TOPICAL PWD 15 GM TOP SCH ×2 (08:41→21:12)
[2016-12-20] MEDS: SENOKOT S TAB PO SCH ×2 (09:00→21:10)
[2016-12-20] MEDS: BISACODYL 5 MG TAB PO SCH (09:00)
[2016-12-20] MEDS: MIRALAX *UNIT DOSE* 17GM PACKET PO SCH (09:00)
[2016-12-20 14:00] VITALS: BP 160/78
[2016-12-20 18:00] VITALS: BP 150/75
[2016-12-21] MEDS: HEPARIN SOD (PORCINE) 5000 UNITS/ML VIAL SC SCH ×3 (05:30→22:42)
[2016-12-21 06:00] VITALS: BP 152/68
[2016-12-21 06:12] LABS: MEAN CORPUSCULAR HEMOGLOBIN 27.2 pg (27.0-33.0); MEAN CORPUSCULAR HGB CONC 31.5 g/dl (32.0-36.5); MEAN CORPUSCULAR VOLUME 86.2 fl (80.0-96.0); RED CELL DISTRIBUTION WIDTH 17.4 % (11.5-14.5); WHITE BLOOD COUNT 9.8 K/mm3 (4.0-10.0)
[2016-12-21 06:13] LABS: BASO # 0.1 K/mm3 (0.0-0.2); BASO % 1.2 % (0.0-1.0); EOS # 0.3 K/mm3 (0.0-0.50); EOS % 2.7 % (0.0-3.0); LARGE UNSTAINED CELL # 0.2 K/mm3 (0.0-0.4); LARGE UNSTAINED CELL % 1.7 % (0.0-4.0); LYMPH # 1.8 K/mm3 (1.5-4.5); LYMPH % 16.6 % (24.0-44.0); MONO # 0.5 K/mm3 (0.0-0.8); MONO % 5.2 % (0.0-5.0); NEUTROPHILS # 7.1 K/mm3 (1.8-7.7); NEUTROPHILS % 72.5 % (36.0-66.0); PLATELET COUNT, AUTOMATED 263 k/mm3 (150-450)
[2016-12-21 06:32] LABS: CALCIUM LEVEL 9.6 MG/DL (8.8-10.2); CREATININE FOR GFR 1.77 MG/DL (0.55-1.02); GLOMERULAR FILTRATION RATE 30.6 (>45); MAGNESIUM LEVEL 2.5 MG/DL (1.8-2.4); POTASSIUM SERUM 4.6 MEQ/L (3.5-5.1)
[2016-12-21] MEDS: rOPINIRole 1MG TAB PO SCH ×3 (08:14→23:56)
[2016-12-21] MEDS: PRIMIDONE 250 MG TAB PO SCH ×2 (08:14→23:56)
[2016-12-21] MEDS: ASPIRIN 81 MG ENTERIC TAB PO SCH (08:14)
[2016-12-21] MEDS: buPROPion 100 MG TAB PO SCH ×3 (08:14→23:57)
[2016-12-21] MEDS: ATORVASTATIN 20 MG TAB PO SCH (08:14)
[2016-12-21] MEDS: PRAMIPEXOLE 0.25 MG TAB PO SCH ×2 (08:14→23:55)
[2016-12-21] MEDS: HumaLOG INSULIN (NovoLOG) PER UNIT SC SCH ×3 (08:15→18:07)
[2016-12-21] MEDS: DONEPEZIL 5 MG TAB PO SCH (08:15)
[2016-12-21] MEDS: LEVEMIR (INSULIN DETEMIR) 1 UNITS/0.01ML SC SCH (08:18)
[2016-12-21] MEDS: NYSTATIN 100,000 UNITS/GM TOPICAL PWD 15 GM TOP SCH ×2 (08:19→22:36)
[2016-12-21] MEDS: MIRALAX *UNIT DOSE* 17GM PACKET PO SCH (09:00)
[2016-12-21] MEDS: BISACODYL 5 MG TAB PO SCH (09:00)
[2016-12-21] MEDS: SENOKOT S TAB PO SCH ×2 (09:00→23:57)
--- NOTE | 2016-12-21 19:35 | IPNPDOC ---
Date Seen The patient was seen on 12/21/16. Progress Note Hospitalist Progress Note Subjective: Patient is essentially nonverbal, she is hardly responding; per son , Bear, this is much worse than before; per nursing, she has not been eating today Objective: Physical Exam: Vitals: Vital Sign - Last 24 Hours 12/21/16 06:00 Temp 97.4 Pulse 86 Resp 17 B/P (MAP) 152/68 (96) Pulse Ox 94 O2 Delivery Room Air General: lying slumped in bed, eyes are open but she is not responding to me HEENT: Normocephalic, atraumatic, moist mucous membranes CV: Regular rate and rhythm Lungs: Clear to auscultation bilaterally Abd: Soft, nontender, nondistended Extremities: Trace edema Neuro: Nonverbal Psych: Unable to assess Labs and Imaging: Laboratory Tests 12/21/16 05:55 Red Blood Count 3.79 L, Mean Corpuscular Volume 86.2, Mean Corpuscular Hemoglobin 27.2, Mean Corpuscular Hemoglobin Concent 31.5 L, Red Cell Distribution Width 17.4 H, Neutrophils (%) (Auto) 72.5 H, Lymphocytes (%) (Auto ) 16.6 L, Monocytes (%) (Auto) 5.2 H, Eosinophils (%) (Auto) 2.7, Basophils (%) (Auto) 1.2 H, Neutrophils # (Auto) 7.1, Lymphocytes # (Auto) 1.8, Monocytes # ( Auto) 0.5, Eosinophils # (Auto) 0.3, Basophils # (Auto) 0.1, Calcium Level 9.6 Assessment and Plan: 66-year-old female with diabetes mellitus type 2, hypertension, hypothyroidism, chronic hyponatremia, history of pituitary tumor status post resection with resultant acromegaly, tremors, depression, hyperlipidemia, chronic kidney disease stage III, uterine prolapse, rheumatoid arthritis, morbid obesity who is brought in by her family for progressive cognitive and physical decline since her 's 3 months ago. She was initially admitted with symptomatic anemia, and has since been transitioned to alternate level of care while she awaits either some rehabilitation or potentially long-term care. However, she seems to have declined throughout the week and nursing states she is not eating now. Will transition back to acute status to hydrate her as PFS continues to work on guardianship. 1. Symptomatic anemia: Patient's hemoglobin upon admission was 7.8, and she responded appropriately to a 2 unit transfusion of PRBCs. Hemoglobin has now been stable in the nines, and she has had no bleeding. A fecal occult blood test is negative. The family reports that the patient occasionally has some bloody vaginal discharge, which has not been noted by the nursing staff. A transabdominal pelvic ultrasound shows normal thickness of the endometrial stripe, but the patient declined an endovaginal ultrasound, and visualization of her adnexa was quite limited secondary to her body habitus. The patient will need an outpatient colonoscopy, as well as outpatient gynecologic follow-up. 2. Acute on chronic hyponatremia: The patient's sodium upon admission was 127. She appeared to have increased bilateral lower extremity edema, so her Lasix was increased. Her sodium has now normalized. Continue to monitor. 3. Acute on chronic kidney disease stage III: The patient's baseline creatinine appears to be in the low ones. She had previously been at baseline, but earlier this week, her creatinine crept up. I suspect this is secondary to the increase in her Lasix. On 12/17, we began holding her Lasix, CATALINO inhibitor, and spironolactone. Cr has been steading improving even without IVF, but since she has stopped eating, I feel we need to initiate active hydration until PFS is able to determine guardianship. 4. Diabetes mellitus type 2: Currently holding home Jardiance, glipizide, and alogliptin. The patient reportedly takes Lantus 69 units daily at home. She currently is on Levemir 25 units daily, but has needed between 10-22u SSI the past three days, and despite not eating, she continues to require more and more SSI each day. Will increase levemir to 30u. Continue sliding scale insulin while in house. We will continue to adjust her insulin dose as necessary. 5. Hypertension: BP is currently well controlled. We have temporarily stopped her CATALINO inhibitor, spironolactone, Lasix given her acute on chronic kidney disease. Continue to monitor blood pressure. 6. Hypothyroidism: There is no Synthroid reported on the patient's home medication list. The TSH was checked and was within normal limits. 7. Rheumatoid arthritis: Per the family, the patient has not received any treatment for this in the last 18 months. She will need outpatient rheumatology follow-up. 8. Depression, decreased mentation: Continue home Wellbutrin. The family reports a history of dementia, but she seems awfully young to have advanced dementia to this degree. I'm concerned given the report that she has declined significantly since her 's that this may represent an acute depressive episode. She was evaluated by Dr. Villatoro of psychiatry who thinks she has depression superimposed on dementia and has stopped her paxil but started aricept. We attempted an MRI the other day but she could not hold still for it. She seems to have continued to decline, and per the son Bear today, she was not talking at all. Will reattempt MRI. 9. Tremors: Continue home Mirapex, Mysoline, Requip, methazolamide. 10. Hyperlipidemia: Continue home aspirin and statin. DVT prophylaxis: Heparin Dispo: case management is currently working with the family to pursue either long-term care or potentially short-term rehabilitation; at this point, until CM /PFS establishes guardianship, we will move her to acute status and hydrate her and recheck MRI; this was discussed by telephone with son Bear today VS, I&O, 24H, Dilanbone Vital Signs/I&O Vital Signs Date Time Temp Pulse Resp B/P (MAP) Pulse Ox O2 Delivery O2 Flow Rate FiO2 12/21/16 06:00 97.4 86 17 152/68 (96) 94 Room Air 12/18/16 02:00 I&O- Last 24 Hours up to 6 AM 12/21/16 06:00 Intake Total 720 ml Output Total 650 ml Balance 70 ml Laboratory Data 24H LABS Laboratory Tests 2 12/20/16 20:33: Bedside Glucose (Misc Panel) 221H 12/21/16 05:55: White Blood Count 9.8, Red Blood Count 3.79L, Hemoglobin 10.3L, Hematocrit 32.7L , Mean Corpuscular Volume 86.2, Mean Corpuscular Hemoglobin 27.2, Mean Corpuscular Hemoglobin Concent 31.5L, Red Cell Distribution Width 17.4H, Platelet Count 263, Neutrophils (%) (Auto) 72.5H, Lymphocytes (%) (Auto) 16.6L, Monocytes (%) (Auto) 5.2H, Eosinophils (%) (Auto) 2.7, Basophils (%) (Auto) 1.2H , Neutrophils # (Auto) 7.1, Lymphocytes # (Auto) 1.8, Monocytes # (Auto) 0.5, Eosinophils # (Auto) 0.3, Basophils # (Auto) 0.1, Large Unclassified Cells % 1.7 , Large Unclassified Cells # 0.2, Anion Gap 8, Glomerular Filtration Rate 30.6L , Blood Urea Nitrogen 72H, Creatinine 1.77H, Sodium Level 143, Potassium Level 4.6, Chloride Level 112H, Carbon Dioxide Level 23, Calcium Level 9.6, Magnesium Level 2.5H 12/21/16 11:47: Bedside Glucose (Misc Panel) 283H 12/21/16 17:15: Bedside Glucose (Misc Panel) 269H CBC/BMP Laboratory Tests 12/21/16 05:55 Red Blood Count 3.79 L, Mean Corpuscular Volume 86.2, Mean Corpuscular Hemoglobin 27.2, Mean Corpuscular Hemoglobin Concent 31.5 L, Red Cell Distribution Width 17.4 H, Neutrophils (%) (Auto) 72.5 H, Lymphocytes (%) (Auto ) 16.6 L, Monocytes (%) (Auto) 5.2 H, Eosinophils (%) (Auto) 2.7, Basophils (%) (Auto) 1.2 H, Neutrophils # (Auto) 7.1, Lymphocytes # (Auto) 1.8, Monocytes # ( Auto) 0.5, Eosinophils # (Auto) 0.3, Basophils # (Auto) 0.1, Calcium Level 9.6 Microbiology Microbiology 12/14/16 Stool Occult Blood (DANIEL) - Final, Complete 12/18/16 Urine Culture - Final, Complete DOUGLAS NICHOLS Dec 21, 2016 19:35
[2016-12-21 22:00] VITALS: BP 137/67
[2016-12-21] MEDS: D5W/0.45% SODIUM CHLORIDE 1,000 ML IV SCH (22:36)
[2016-12-21 23:15] VITALS: BP 138/65
[2016-12-22] MEDS ORDERED: HumaLOG INSULIN (NovoLOG) PER UNIT SC ONE (00:15)
[2016-12-22] MEDS: HEPARIN SOD (PORCINE) 5000 UNITS/ML VIAL SC SCH ×3 (05:42→21:16)
[2016-12-22 06:00] VITALS: BP 148/72
[2016-12-22 06:15] LABS: BASO # 0.1 K/mm3 (0.0-0.2); BASO % 1.1 % (0.0-1.0); EOS # 0.1 K/mm3 (0.0-0.50); EOS % 0.7 % (0.0-3.0); LARGE UNSTAINED CELL # 0.2 K/mm3 (0.0-0.4); LARGE UNSTAINED CELL % 1.5 % (0.0-4.0); LYMPH # 1.8 K/mm3 (1.5-4.5); LYMPH % 13.6 % (24.0-44.0); MEAN CORPUSCULAR HEMOGLOBIN 27.5 pg (27.0-33.0); MEAN CORPUSCULAR HGB CONC 31.9 g/dl (32.0-36.5); MEAN CORPUSCULAR VOLUME 86.2 fl (80.0-96.0); MONO # 0.8 K/mm3 (0.0-0.8); MONO % 6.1 % (0.0-5.0); NEUTROPHILS # 9.3 K/mm3 (1.8-7.7); NEUTROPHILS % 76.9 % (36.0-66.0); PLATELET COUNT, AUTOMATED 282 k/mm3 (150-450); RED CELL DISTRIBUTION WIDTH 17.8 % (11.5-14.5); WHITE BLOOD COUNT 12.1 K/mm3 (4.0-10.0)
[2016-12-22 06:16] LABS: CALCIUM LEVEL 9.3 MG/DL (8.8-10.2); CREATININE FOR GFR 1.83 MG/DL (0.55-1.02); GLOMERULAR FILTRATION RATE 29.4 (>45); MAGNESIUM LEVEL 2.5 MG/DL (1.8-2.4); POTASSIUM SERUM 4.5 MEQ/L (3.5-5.1)
[2016-12-22 08:20] VITALS: BP 146/67
[2016-12-22] MEDS: NYSTATIN 100,000 UNITS/GM TOPICAL PWD 15 GM TOP SCH ×2 (08:30→21:16)
[2016-12-22] MEDS: LEVEMIR (INSULIN DETEMIR) 1 UNITS/0.01ML SC SCH (08:38)
[2016-12-22] MEDS: HumaLOG INSULIN (NovoLOG) PER UNIT SC SCH ×3 (08:42→18:26)
--- NOTE | 2016-12-22 08:57 | REP ---
Portable chest, 07:49 a.m., 12/22/2016, single AP view, the patient semi upright: Comparison is 10/31/2016. The lung hernandez are clear except for minor discoid atelectasis in the right costophrenic angle. The cardiac size is normal. The chaim, mediastinum, and bony thorax are unremarkable. Impression: Negative portable chest except for minor atelectasis in the left costophrenic angle. Signed by Ethan Claros MD 12/22/2016 08:49 A
[2016-12-22 10:00] VITALS: BP 166/80
[2016-12-22] MEDS: SENOKOT S TAB PO SCH ×2 (10:00→21:00)
[2016-12-22] MEDS: PRIMIDONE 250 MG TAB PO SCH ×2 (10:00→21:00)
[2016-12-22] MEDS: DONEPEZIL 5 MG TAB PO SCH (10:00)
[2016-12-22] MEDS: ASPIRIN 81 MG ENTERIC TAB PO SCH (10:00)
[2016-12-22] MEDS: MIRALAX *UNIT DOSE* 17GM PACKET PO SCH (10:00)
[2016-12-22] MEDS: buPROPion 100 MG TAB PO SCH ×3 (10:00→21:00)
[2016-12-22] MEDS: ATORVASTATIN 20 MG TAB PO SCH (10:00)
[2016-12-22] MEDS: BISACODYL 5 MG TAB PO SCH (10:00)
[2016-12-22] MEDS: PRAMIPEXOLE 0.25 MG TAB PO SCH ×2 (10:00→21:00)
[2016-12-22] MEDS: rOPINIRole 1MG TAB PO SCH ×3 (10:00→21:00)
[2016-12-22] MEDS ORDERED: cefTRIAXone SOD 1 GM in D5W MINI-BAG PLUS 50 ML IV SCH (11:00)
--- NOTE | 2016-12-22 13:49 | REP ---
,MR BRAIN WITHOUT CONTRAST: HISTORY: Altered mental status. COMPARISON: CT 12/10/2016 and MR 12/18/2016. Areas of increased signal intensity on T2-weighted images are present in the periventricular and subcortical white matter and jazmyn. This represents small vessel ischemic disease. There is no intraparenchymal hemorrhage, infarct, or midline shift. The ventricular system and cortical sulci are dilated consistent with mild volume loss. There is no extracerebral collection. There is enlargement of the sella turcica. The pituitary gland is small in size. These findings are consistent with postoperative change. Increased signal intensity on T2-weighted images is present in the right cavernous sinus representing residual pituitary tumor. There is loss of the normal signal void in the cavernous right internal carotid artery. This is secondary to stenosis or occlusion. The sinuses are clear. IMPRESSION: 1. Small vessel ischemic disease. 2. Mild volume loss. 3. There is abnormal signal intensity in the right cavernous sinus representing residual pituitary tumor. 4. There is loss of the normal signal void in the cavernous right internal carotid artery. This is secondary to stenosis or occlusion. MRA of the carotids may be helpful for further evaluation. Signed by Isreal Church MD 12/22/2016 02:03 P
[2016-12-22 14:00] VITALS: BP 139/64
[2016-12-22] MEDS: D5W/0.45% SODIUM CHLORIDE 1,000 ML IV SCH (14:08)
--- NOTE | 2016-12-22 16:40 | IPNPDOC ---
Date Seen The patient was seen on 12/22/16. Progress Note Hospitalist Progress Note Subjective: Patient grimaces to sternal rub but is otherwise unresponsive; per nursing, not eating or drinking Objective: Physical Exam: Vitals: Vital Sign - Last 24 Hours 12/21/16 12/21/16 12/22/16 12/22/16 22:00 23:15 06:00 08:20 Temp 97.8 98.1 99.3 99.2 Pulse 100 98 101 104 Resp 18 20 19 20 B/P (MAP) 137/67 (90) 138/65 (89) 148/72 (97) 146/67 (93) Pulse Ox 93 93 94 99 O2 Delivery Room Air Room Air Room Air Room Air 12/22/16 12/22/16 10:00 14:00 Temp 99.1 99.3 Pulse 105 101 Resp 19 19 B/P (MAP) 166/80 (108) 139/64 (89) Pulse Ox 93 90 O2 Delivery Room Air Nasal Cannula O2 Flow Rate 1.0 General: lying slumped in bed, grimaces to sternal rub HEENT: Normocephalic, atraumatic, moist mucous membranes CV: Regular rate and rhythm Lungs: Clear to auscultation bilaterally Abd: Soft, nontender, nondistended Extremities: Trace edema Neuro: unresponsive other than grimace to sternal rub Psych: Unable to assess Labs and Imaging: Laboratory Tests 12/22/16 05:33 Red Blood Count 4.02, Mean Corpuscular Volume 86.2, Mean Corpuscular Hemoglobin 27.5, Mean Corpuscular Hemoglobin Concent 31.9 L, Red Cell Distribution Width 17.8 H, Neutrophils (%) (Auto) 76.9 H, Lymphocytes (%) (Auto) 13.6 L, Monocytes (%) (Auto) 6.1 H, Eosinophils (%) (Auto) 0.7, Basophils (%) (Auto) 1.1 H, Neutrophils # (Auto) 9.3 H, Lymphocytes # (Auto) 1.8, Monocytes # (Auto) 0.8, Eosinophils # (Auto) 0.1, Basophils # (Auto) 0.1, Calcium Level 9.3 Assessment and Plan: 66-year-old female with diabetes mellitus type 2, hypertension, hypothyroidism, chronic hyponatremia, history of pituitary tumor status post resection with resultant acromegaly, tremors, depression, hyperlipidemia, chronic kidney disease stage III, uterine prolapse, rheumatoid arthritis, morbid obesity who is brought in by her family for progressive cognitive and physical decline since her 's 3 months ago. She was initially admitted with symptomatic anemia, and has since been transitioned to alternate level of care while she awaits either some rehabilitation or potentially long-term care. However, she declined in the last several days and has been transitioned back to acute status. Today she is found to have a UTI. 1. Symptomatic anemia: Patient's hemoglobin upon admission was 7.8, and she responded appropriately to a 2 unit transfusion of PRBCs. Hemoglobin has now been stable in the nines, and she has had no bleeding. A fecal occult blood test is negative. The family reports that the patient occasionally has some bloody vaginal discharge, which has not been noted by the nursing staff. A transabdominal pelvic ultrasound shows normal thickness of the endometrial stripe, but the patient declined an endovaginal ultrasound, and visualization of her adnexa was quite limited secondary to her body habitus. The patient will need an outpatient colonoscopy, as well as outpatient gynecologic follow-up. 2. Acute on chronic hyponatremia: The patient's sodium upon admission was 127. She appeared to have increased bilateral lower extremity edema, so her Lasix was increased. Her sodium has now normalized. Continue to monitor. 3. Acute on chronic kidney disease stage III: The patient's baseline creatinine appears to be in the low ones. She had previously been at baseline, but last week, her creatinine crept up. I suspect this is secondary to the increase in her Lasix. On 12/17, we began holding her Lasix, CATALINO inhibitor, and spironolactone. Cr had been steading improving even without IVF, but since she has stopped eating yesterday, I started IVF and her Cr is actually up a bit today. Continue IVF. 4. Diabetes mellitus type 2: Currently holding home Jardiance, glipizide, and alogliptin. The patient reportedly takes Lantus 69 units daily at home. She currently is on Levemir 30 units daily. Continue sliding scale insulin while in house. We will continue to adjust her insulin dose as necessary. 5. Hypertension: BP is currently acceptedly controlled. We have temporarily stopped her CATALINO inhibitor, spironolactone, Lasix given her acute on chronic kidney disease. Continue to monitor blood pressure. 6. Hypothyroidism: There is no Synthroid reported on the patient's home medication list. The TSH was checked and was within normal limits. 7. Rheumatoid arthritis: Per the family, the patient has not received any treatment for this in the last 18 months. She will need outpatient rheumatology follow-up. 8. Depression, decreased mentation: Continue home Wellbutrin. The family reports a history of dementia. I'm concerned given the report that she has declined significantly since her 's that this may represent an acute depressive episode. She was evaluated by Dr. Villatoro of psychiatry who thinks she has depression superimposed on dementia and has stopped her paxil but started aricept. We attempted an MRI the other day but she could not hold still for it. Reattempted MRI today and it does not have acute changes but does mention potential right ICA stenosis. If the sons decide to continue aggressive intervention, this should be further evaluated with carotid imaging. 9. Tremors: Continue home Mirapex, Mysoline, Requip, methazolamide. 10. Hyperlipidemia: Continue home aspirin and statin. DVT prophylaxis: Heparin Dispo: spoke with two sons Bear and Joaquin in person today; they think she would want to be DNR/DNI, so we have signed the appropriate MOLST form; they would like to see if she improves at all after a day or two of antibiotics and then reevaluate; they state that if she is not improving, they think she would probably want COSTUME DRAPER; will reassess this with them in 24-48H VS, I&O, 24H, Fishbone Vital Signs/I&O Vital Signs Date Time Temp Pulse Resp B/P (MAP) Pulse Ox O2 Delivery O2 Flow Rate FiO2 12/22/16 14:00 99.3 101 19 139/64 (89) 90 Nasal Cannula 1.0 I&O- Last 24 Hours up to 6 AM 12/22/16 05:59 Intake Total 280 ml Output Total 750 ml Balance -470 ml Laboratory Data 24H LABS Laboratory Tests 2 12/21/16 17:15: Bedside Glucose (Misc Panel) 269H 12/21/16 20:32: Bedside Glucose (Misc Panel) 213H 12/21/16 23:50: Bedside Glucose (Misc Panel) 234H 12/22/16 05:33: White Blood Count 12.1H, Red Blood Count 4.02, Hemoglobin 11.1L, Hematocrit 34.7L, Mean Corpuscular Volume 86.2, Mean Corpuscular Hemoglobin 27.5, Mean Corpuscular Hemoglobin Concent 31.9L, Red Cell Distribution Width 17.8H, Platelet Count 282, Neutrophils (%) (Auto) 76.9H, Lymphocytes (%) (Auto) 13.6L, Monocytes (%) (Auto) 6.1H, Eosinophils (%) (Auto) 0.7, Basophils (%) (Auto) 1.1H , Neutrophils # (Auto) 9.3H, Lymphocytes # (Auto) 1.8, Monocytes # (Auto) 0.8, Eosinophils # (Auto) 0.1, Basophils # (Auto) 0.1, Large Unclassified Cells % 1.5 , Large Unclassified Cells # 0.2, Anion Gap 11, Glomerular Filtration Rate 29.4L , Blood Urea Nitrogen 74H, Creatinine 1.83H, Sodium Level 146H, Potassium Level 4.5, Chloride Level 114H, Carbon Dioxide Level 21, Calcium Level 9.3, Magnesium Level 2.5H 12/22/16 08:17: Urine Appearance CLOUDYH, Urine Color YELLOW, Urine pH 5.0, Urine Specific [place] 1.016, Urine Protein 1+H, Urine Glucose (UA) NEGATIVE, Urine Ketones NEGATIVE, Urine Urobilinogen 0.2, Urine Bilirubin NEGATIVE, Urine Leukocyte Esterase 3+H, Urine Blood 2+H, Urine Nitrite POSITIVE, Urine WBC (Auto) TNTCH, Urine RBC (Auto) 13H, Urine Hyaline Casts (Auto) 2, Urine Bacteria (Auto) 2+H, Urine Squamous Epithelial Cells 1, Urine Mucus (Auto) SMALL, Urine Sperm (Auto) 12/22/16 11:55: Bedside Glucose (Misc Panel) 319H CBC/BMP Laboratory Tests 12/22/16 05:33 Red Blood Count 4.02, Mean Corpuscular Volume 86.2, Mean Corpuscular Hemoglobin 27.5, Mean Corpuscular Hemoglobin Concent 31.9 L, Red Cell Distribution Width 17.8 H, Neutrophils (%) (Auto) 76.9 H, Lymphocytes (%) (Auto) 13.6 L, Monocytes (%) (Auto) 6.1 H, Eosinophils (%) (Auto) 0.7, Basophils (%) (Auto) 1.1 H, Neutrophils # (Auto) 9.3 H, Lymphocytes # (Auto) 1.8, Monocytes # (Auto) 0.8, Eosinophils # (Auto) 0.1, Basophils # (Auto) 0.1, Calcium Level 9.3 Microbiology Microbiology 12/14/16 Stool Occult Blood (DANIEL) - Final, Complete 12/22/16 Urine Culture, Received Pending 12/18/16 Urine Culture - Final, Complete DOUGLAS NICHOLS Dec 22, 2016 16:40
[2016-12-22 21:42] VITALS: BP 146/81
[2016-12-22] MEDS ORDERED: FUROSEMIDE 40 MG/4 ML VIAL (J1940) IV ONE (22:15)
[2016-12-22] MEDS ORDERED: IPRATROPIUM 0.5MG/ALBUTEROL 2.5MG INH SOL UD 3ML (DUONEB)(J7620) NEB PRN (22:15)
--- NOTE | 2016-12-22 22:24 | IPNPDOC ---
Text Note Date of Service The patient was seen on 12/22/16. NOTE Resident and evening attending were called emergently about patient was desatting in the 70s, however saturation returned to high 80s with suctioning. Patient was seen urgently at bedside, auscultation showed rhonchi in the upper airways. Deep suction done by respiratory was ordered. Stat CXR was also ordered. Due to the note stated patient was made DNR/DNI and possible CAM SPECIALIST if patient doesn't improve, will not intubate her if patient's saturation doesn't return to normal. She is not a good candidate for BIPAP neither due to she has been none responsive for over a day. Patient has been discussed with Dr. Maza. Attending note: Discussed patient as outlined above. Will continue to monitor as outlined. VS,Fishbone, I+O VS, Fishbone, I+O Laboratory Tests 12/22/16 05:33 Red Blood Count 4.02, Mean Corpuscular Volume 86.2, Mean Corpuscular Hemoglobin 27.5, Mean Corpuscular Hemoglobin Concent 31.9 L, Red Cell Distribution Width 17.8 H, Neutrophils (%) (Auto) 76.9 H, Lymphocytes (%) (Auto) 13.6 L, Monocytes (%) (Auto) 6.1 H, Eosinophils (%) (Auto) 0.7, Basophils (%) (Auto) 1.1 H, Neutrophils # (Auto) 9.3 H, Lymphocytes # (Auto) 1.8, Monocytes # (Auto) 0.8, Eosinophils # (Auto) 0.1, Basophils # (Auto) 0.1, Calcium Level 9.3 Vital Signs Date Time Temp Pulse Resp B/P (MAP) Pulse Ox O2 Delivery O2 Flow Rate FiO2 12/22/16 21:42 98.9 127 28 146/81 (102) 89 Nasal Cannula 4.0 I&O- Last 24 Hours up to 6 AM 12/22/16 06:00 Intake Total 40 ml Output Total 950 ml Balance -910 ml JOHN BELL DO Dec 22, 2016 22:24 ELIAZAR MAZA DO Dec 23, 2016 02:14
[2016-12-22 22:55] LABS: ABG BASE EXCESS -5.7 (-2.0-2.0); ABG HCO3 17.2 MEQ/L (22.0-26.0); ABG PARTIAL PRESSURE CO2 26.5 mmHg (35.0-45.0); ABG PARTIAL PRESSURE O2 64.7 mmHg (75.0-100.0); ABG STANDARD HCO3 19.7 MEQ/L (22.0-26.0); ABG pH (ARTERIAL) 7.429 UNITS (7.350-7.450)
--- NOTE | 2016-12-22 23:50 | REPUSA ---
HISTORY: Tachypnea. COMPARISON: None provided. CHEST, FRONTAL: Heart: No cardiomegaly. Lungs: No lobar infiltrate, pulmonary edema, pneumothorax or significant effusion. Skeleton: Intact. Upper abdomen: Cholecystectomy clips. IMPRESSION: No acute thoracic process.
[2016-12-23 02:00] VITALS: BP 119/64
[2016-12-23] MEDS: HEPARIN SOD (PORCINE) 5000 UNITS/ML VIAL SC SCH ×2 (05:00→13:08)
[2016-12-23 06:00] VITALS: BP 116/59
[2016-12-23 06:34] LABS: LYMPH % 8.2 % (24.0-44.0); MEAN CORPUSCULAR HEMOGLOBIN 27.1 pg (27.0-33.0); MEAN CORPUSCULAR HGB CONC 31.3 g/dl (32.0-36.5); MEAN CORPUSCULAR VOLUME 86.7 fl (80.0-96.0); MONO % 4.6 % (0.0-5.0); NEUTROPHILS % 85.5 % (36.0-66.0); PLATELET COUNT, AUTOMATED 263 k/mm3 (150-450); RED CELL DISTRIBUTION WIDTH 17.6 % (11.5-14.5); WHITE BLOOD COUNT 18.7 K/mm3 (4.0-10.0)
[2016-12-23 06:35] LABS: BASO # 0.1 K/mm3 (0.0-0.2); BASO % 0.5 % (0.0-1.0); EOS % 0.1 % (0.0-3.0); LARGE UNSTAINED CELL # 0.2 K/mm3 (0.0-0.4); LARGE UNSTAINED CELL % 1.1 % (0.0-4.0); LYMPH # 1.8 K/mm3 (1.5-4.5); MONO # 0.9 K/mm3 (0.0-0.8)
[2016-12-23 06:45] LABS: CALCIUM LEVEL 9.4 MG/DL (8.8-10.2); CREATININE FOR GFR 2.86 MG/DL (0.55-1.02); GLOMERULAR FILTRATION RATE 17.6 (>45); MAGNESIUM LEVEL 2.3 MG/DL (1.8-2.4); POTASSIUM SERUM 4.8 MEQ/L (3.5-5.1)
[2016-12-23] MEDS ORDERED: CEFEPIME HCL 2 GM in D5W MINI-BAG PLUS 50 ML IV SCH (07:30)
[2016-12-23] MEDS ORDERED: PIPERACILLIN/TAZOBACTAM SOD 2.25 GM in D5W MINI-BAG PLUS 50 ML IV SCH (07:30)
[2016-12-23] MEDS ORDERED: VANCOMYCIN INTERMITTENT/PULSE DOSING BY CLINICAL PHARMACIST PER DOSING PROTOCOL XX SCH (08:00)
[2016-12-23] MEDS: HumaLOG INSULIN (NovoLOG) PER UNIT SC SCH ×2 (08:00→13:08)
[2016-12-23] MEDS ORDERED: VANCOMYCIN HCL 1,000 MG, VIAL MATE ADAPTER 1 EACH in D5W 250 ML IV ONE (08:00)
[2016-12-23] MEDS: PRAMIPEXOLE 0.25 MG TAB PO SCH (08:35)
[2016-12-23] MEDS: DONEPEZIL 5 MG TAB PO SCH (08:35)
[2016-12-23] MEDS: MIRALAX *UNIT DOSE* 17GM PACKET PO SCH (08:35)
[2016-12-23] MEDS: ASPIRIN 81 MG ENTERIC TAB PO SCH (08:35)
[2016-12-23] MEDS: ATORVASTATIN 20 MG TAB PO SCH (08:35)
[2016-12-23] MEDS: BISACODYL 5 MG TAB PO SCH (08:35)
[2016-12-23] MEDS: rOPINIRole 1MG TAB PO SCH (08:36)
[2016-12-23] MEDS: buPROPion 100 MG TAB PO SCH (08:36)
[2016-12-23] MEDS: SENOKOT S TAB PO SCH (08:36)
[2016-12-23] MEDS: PRIMIDONE 250 MG TAB PO SCH (08:36)
[2016-12-23] MEDS ORDERED: VANCOMYCIN HCL 500 MG in D5W MINI-BAG PLUS 100 ML IV ONE ×2 (09:00→11:00)
[2016-12-23 10:00] VITALS: BP 118/58
--- NOTE | 2016-12-23 10:31 | PHACANCOPD ---
PHARMACY VANCOMYCIN DOSING Pt Demographics Demographics Patient Age:66 , Weight:90.800 , Gender: female Adjusted Body Weight Date: 12/23/16, Adjusted Body Weight: Kg Events Past 24 Hours Events Past 24 Hours: YES: Change in CrCl (in the last few days SCr has been consistently increased) Vancomycin Vancomycin indication: sepsis Vancomycin Target Ranges: 15-20 mcg/ml Vancomycin Load Y/N: Yes Load Dose Date Time Vancomycin Load Dose: 1500mg Date: 12/23 Time: 0800 Vancomycin Dose Date: 12/23/16. Current Vancomycin Dose: [intermittent] Intermittent Dosing?: Yes Labs Labs Item Value Date Time Creatinine 1.78 MG/DL H 12/20/16 0555 Creatinine 1.77 MG/DL H 12/21/16 0555 Creatinine 1.83 MG/DL H 12/22/16 0533 Creatinine 2.86 MG/DL H # 12/23/16 0551 White Blood Count 9.8 K/mm3 12/21/16 0555 White Blood Count 12.1 K/mm3 H 12/22/16 0533 White Blood Count 18.7 K/mm3 H 12/23/16 0551 Micro Microbiology 12/14/16 Stool Occult Blood (DANIEL) - Final, Complete 12/22/16 Urine Culture, Received Pending 12/18/16 Urine Culture - Final, Complete Creatinine Clearance Date:12/23/16. Creatinine Clearance: [15ml/min]. Pending Labs vanco random / @ 0800 Assessment and Plan Maintaining Current Dose?: Yes Reason for dose change: No Dose Change Pharmacist Note Pharmacist Note Date: 12/23/16. Pharmacist note: Vanco was initiated for the treatment of suspected sepsis. WBCs and SCr have steadily increased the last couple of days. A one time Vanco dose of 1500 mg was scheduled for 0800 followed a random level 12/24. Continue to monitor renal function and adjust dose as needed. KALANI [facility]GR[facility]OT [facility] Dec 23, 2016 10:31
[2016-12-23] MEDS: LEVEMIR (INSULIN DETEMIR) 1 UNITS/0.01ML SC SCH (10:37)
[2016-12-23] MEDS: NYSTATIN 100,000 UNITS/GM TOPICAL PWD 15 GM TOP SCH (10:37)
[2016-12-23] MEDS ORDERED: NS 1,000 ML IV ONE (13:30)
[2016-12-23] MEDS ORDERED: MORPHINE 2 MG/ML 1ML SYRINGE As Ordered ONE (13:35)
[2016-12-23] MEDS ORDERED: MORPHINE SULF IN 0.9% NACL 100 MG in APPROPRIATE DILUENT 1 EA IV SCH ×2 (13:38)
[2016-12-23] MEDS ORDERED: MORPHINE 2 MG/ML 1ML SYRINGE IV PRN (13:45)
[2016-12-23] MEDS ORDERED: LORazepam 2 MG/ML VIAL (J2060) IV PRN (13:45)
[2016-12-23] MEDS ORDERED: ATROPINE SULFATE 1% OP SOLN 2 ML BTL SL PRN (13:45)
--- NOTE | 2016-12-23 18:00 | DS.PDOC ---
Discharge Summary General Date of Admission Dec 10, 2016 at 18:26 Date of Discharge 12/23/16 Attending Physician: CHING CRUZ MD Specialist/Consultants Involve: PUAL STOKES MD Discharge Summary PROCEDURES PERFORMED DURING STAY: None. ADMITTING/DISCHARGE DIAGNOSES: 1. Severe sepsis secondary to urinary source. In addition, questionable aspiration pneumonia 2. Acute hypoxic respiratory failure 3. Severe hypotension, with progression towards shock 4. Acute renal failure, with baseline CKD 5. Metabolic encephalopathy 2/2 sepsis and VIRA 6. Hypernatremia 7. Hyperchloremia 8. Metabolic acidosis 9. Symptomatically anemia status post 2 units PRBC 10 H/o Chronic hyponatremia 11. Diabetes mellitus 12. History of Hypertension 13. Hypothyroidism 14. Rheumatoid arthritis 15. Depression 16. H/o Tremors COMPLICATIONS/CHIEF COMPLAINT: Symptomatic Anemia. HISTORY OF PRESENT ILLNESS/HOSPITAL COURSE: . This is a 66-year-old female past medical history of diabetes, rheumatoid arthritis, hypothyroidism who presented with symptomatic anemia. Patient has been very pale and weak prior to presentation. At the time patient was noted to have a progressive decline in her hemoglobin. Family had stated that the patient had occasionally spotted from her vaginal region was supposed to have a hysterectomy however had postponed it after her was diagnosed with metastatic cancer. She was also told that she will need a colonoscopy however she had refused in the past.Patient was transfused 2 units PRBCs and remained hemodynamically stable. A transabdominal pelvic ultrasound noted normal thickness of the endometrial stripe, and pt declined an endovaginal ultrasound , and visualization of her adnexa was quite limited secondary to her body habitus per medical records. Over the course of hospitalization, patient was placed on ALC status she was waiting for potential rehabilitation versus placement. On 12/17/16, the patient was noted to be increasingly lethargic with response to sternal rub. Patient also had workup for her altered mental status including MRI of the brain which was negative for acute findings, patient was also evaluated by psychiatry given her severe depression over her loss. The patient was noted to have persistent leukocytosis and noted to be in severe sepsis with likely urinary source. Patient was started on on Rocephin on 12/22/16 however continued to decompensate. Dr. Ann and spoken to the family and they were adamant that like the patient to be made DNR/DNI. 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 Upon examining the patient today, the patient was very lethargic, not responsive to painful stimuli. Patient was started on vancomycin and Zosyn today as her clinical status worsened, and there was concern for a complicated urinary tract infection in addition to possible aspiration pneumonia as the nursing staff noted increased copious sputum production. However, despite efforts of resuscitation with IVF and antibiotic therapy, the patient developed acute hypoxic respiratory failure, acute renal failure, as well as severe hypotension. Family was at bedside and had decided to make the patient comfort measures only. Bear (one of the sons) was at bedside and Joaquin was over the phone. Witnessed by nurses. Molst form was updated. Antibiotics and fluids were discontinued. Lactic acid/repeat VBG/cultures were not sent this am as patient' s family did not want any further aggressive therapy. Patient was started morphine drip. Patient 12/23/16. TIME SPENT ON DISCHARGE: Greater than 30 minutes. Vital Signs/I&Os Vital Signs Date Time Temp Pulse Resp B/P (MAP) Pulse Ox O2 Delivery O2 Flow Rate FiO2 12/23/16 10:00 99.9 113 24 118/58 (78) 90 Nasal Cannula 4.0 I&O- Last 24 Hours up to 6 AM 12/23/16 06:00 Intake Total 750 ml Output Total 400 ml Balance 350 ml Laboratory Data Labs 24H Laboratory Tests 2 12/22/16 20:01: Bedside Glucose (Misc Panel) 328H 12/22/16 22:43: Blood Gas Bicarbonate Standard 19.7L, Arterial Blood pH 7.429, Arterial Blood Partial Pressure CO2 26.5L, Arterial Blood Partial Pressure O2 64.7L, Arterial Blood Total CO2 18.0L, Arterial Blood HCO3 17.2L, Arterial Blood Base Excess - 5.7L, Arterial Blood Oxygen Saturation 92.5L 12/23/16 05:51: White Blood Count 18.7H, Red Blood Count 4.05, Hemoglobin 11.0L, Hematocrit 35.2L, Mean Corpuscular Volume 86.7, Mean Corpuscular Hemoglobin 27.1, Mean Corpuscular Hemoglobin Concent 31.3L, Red Cell Distribution Width 17.6H, Platelet Count 263, Neutrophils (%) (Auto) 85.5H, Lymphocytes (%) (Auto) 8.2L, Monocytes (%) (Auto) 4.6, Eosinophils (%) (Auto) 0.1, Basophils (%) (Auto) 0.5, Neutrophils # (Auto) 16.0H, Lymphocytes # (Auto) 1.8, Monocytes # (Auto) 0.9H, Eosinophils # (Auto) 0.0, Basophils # (Auto) 0.1, Large Unclassified Cells % 1.1 , Large Unclassified Cells # 0.2, Anion Gap 13, Glomerular Filtration Rate 17.6L , Blood Urea Nitrogen 86H, Creatinine 2.86#H, Sodium Level 147H, Potassium Level 4.8, Chloride Level 116H, Carbon Dioxide Level 18L, Calcium Level 9.4, Magnesium Level 2.3 12/23/16 10:30: Bedside Glucose (Misc Panel) 433H 12/23/16 11:56: Bedside Glucose (Misc Panel) 426H CBC/BMP Laboratory Tests 12/23/16 05:51 Red Blood Count 4.05, Mean Corpuscular Volume 86.7, Mean Corpuscular Hemoglobin 27.1, Mean Corpuscular Hemoglobin Concent 31.3 L, Red Cell Distribution Width 17.6 H, Neutrophils (%) (Auto) 85.5 H, Lymphocytes (%) (Auto) 8.2 L, Monocytes ( %) (Auto) 4.6, Eosinophils (%) (Auto) 0.1, Basophils (%) (Auto) 0.5, Neutrophils # (Auto) 16.0 H, Lymphocytes # (Auto) 1.8, Monocytes # (Auto) 0.9 H , Eosinophils # (Auto) 0.0, Basophils # (Auto) 0.1, Calcium Level 9.4 FSBS Laboratory Tests Test 12/22/16 20:01 12/23/16 10:30 12/23/16 11:56 Range/Units Bedside Glucose (Misc Panel) 328 433 426 80-115 MG/DL Microbiology Microbiology 12/14/16 Stool Occult Blood (DANIEL) - Final, Complete 12/22/16 Urine Culture, Received Pending 12/18/16 Urine Culture - Final, Complete Discharge Medications Scheduled Alogliptin Benzoate (Alogliptin) 12.5 Mg Tab, 25 MG PO DAILY, (Reported) Aspirin (Aspirin) 81 Mg Tab, 81 MG PO DAILY, (Reported) Atorvastatin Calcium (Atorvastatin Calcium) 40 Mg Tab, 40 MG PO DAILY, (Reported ) Bupropion HCl (Bupropion HCl) 50 Mg Halftab, 100 MG PO TID, (Reported) Donepezil Hcl (Donepezil HCl) 10 Mg Tab, 10 MG PO DAILY, (Reported) Empagliflozin (Jardiance) 10 Mg Tab, 10 MG PO DAILY, (Reported) Furosemide (Furosemide) 20 Mg Tab, 20 MG PO BID, (Reported) Glipizide (Glipizide) 10 Mg Tab, 20 MG PO BID, (Reported) Insulin Glargine (Lantus) 1 Units/0.01 Ml Susp, 69 UNITS SC DAILY, (Reported) Lisinopril (Lisinopril) 40 Mg Tab, 40 MG PO DAILY, (Reported) Methazolamide (Methazolamide) 50 Mg Tab, 50 MG PO BID, (Reported) Paroxetine (Paroxetine HCl) 40 Mg Tab, 40 MG PO DAILY, (Reported) Pramipexole Dihydrochloride (Mirapex) 0.5 Mg Tab, 0.5 MG PO BID, (Reported) TAKES SUPPER AND BEDTIME Primidone (Primidone) 250 Mg Tab, 250 MG PO QAM, (Reported) Primidone (Primidone) 250 Mg Tab, 125 MG PO QPM, (Reported) Ropinirole Hydrochloride (Ropinirole HCl) 2 Mg Tab, 2 MG PO TID, (Reported) Spironolactone (Spironolactone) 100 Mg Tab, 100 MG PO DAILY, (Reported) Allergies Coded Allergies: No Known Allergies (Unverified , 11/20/16) CHING CRUZ MD Dec 23, 2016 18:00
--- NOTE | 2016-12-24 22:18 | ECGEPIP ---
Stationary ECG Study [facility] Test Date: 2016-12-23 Pat Name: REGINA HENRIQUEZ Department: Room: [place] [address] Gender: F National Service Officer: NOHELIA : 1950 Requested By: CHING CRUZ Order Number: [id number] Reading MD: Jose Nelson Measurements Intervals [place] Rate: 115 P: 36 MS: 116 QRS: 2 QRSD: 77 T: 48 QT: 319 QTc: 442 Interpretive Statements SINUS TACHYCARDIA LOW QRS VOLTAGE IN PRECORDIAL LEADS ABNORMAL RHYTHM ECG COMPARED TO THE LAST 2 TRACINGS IN THE SYSTEM, HEART RATE IS NOW MUCH FASTER OTHERWISE NO SIGNIFICANT CHANGES Electronically Signed On 12-24-2016 22:18:22 EDT by Jose Nelson
== END 2016-12-23 17:50 | disposition expired | DRG 811 ==
LOC: EDBD 13:43 → M ED 13:43 → M ED INP 18:26 → M MSPAV 20:25
PROVIDERS: ADMIT Internal Medicine; ATTEND Internal Medicine
PROC: 30253N1 (ICD-10-PCS; principal; 2016-12-10)
DX: D64.9 Anemia, unspecified (principal); A41.9 Sepsis, unspecified organism; R65.21 Severe sepsis with septic shock; J69.0 Pneumonitis due to inhalation of food and vomit; J96.01 Acute respiratory failure with hypoxia; G93.41 Metabolic encephalopathy; E87.1 Hypo-osmolality and hyponatremia; E87.0 Hyperosmolality and hypernatremia; E87.2 Acidosis; N39.0 Urinary tract infection, site not specified; Z68.42 Body mass index [BMI] 45.0-49.9, adult; N17.9 Acute kidney failure, unspecified; Z51.5 Encounter for palliative care; Z66 Do not resuscitate; F32.9 Major depressive disorder, single episode, unspecified; R26.89 Other abnormalities of gait and mobility; E11.649 Type 2 diabetes mellitus with hypoglycemia without coma; I10 Essential (primary) hypertension; E03.9 Hypothyroidism, unspecified; F43.21 Adjustment disorder with depressed mood; N18.3 Chronic kidney disease, stage 3 (moderate); M06.9 Rheumatoid arthritis, unspecified; G30.9 Alzheimer's disease, unspecified; F02.80 Dementia in other diseases classified elsewhere, unspecified severity, without behavioral disturbance, psychotic disturbance, mood disturbance, and anxiety; N81.4 Uterovaginal prolapse, unspecified; E87.8 Other disorders of electrolyte and fluid balance, not elsewhere classified; G25.81 Restless legs syndrome; E22.0 Acromegaly and pituitary gigantism; E66.01 Morbid (severe) obesity due to excess calories; E78.5 Hyperlipidemia, unspecified; R53.1 Weakness; Z87.891 Personal history of nicotine dependence; G25.0 Essential tremor; M25.552 Pain in left hip; Z79.82 Long term (current) use of aspirin; Z79.4 Long term (current) use of insulin; Z79.899 Other long term (current) drug therapy